=== PATIENT | female | born 1970 | race American Indian/Alaskan Native ===

== ENCOUNTER 2016-11-22 07:55 | Emergency (ER) | payer MEDICARE ==
[2016-11-22] MEDS ORDERED: DUONEB 0.5 MG-3 MG/3 ML SOLN IH ONE ×2 (08:32→08:38)
[2016-11-22 09:03] LABS: Basophils % (Auto) 0.5 % (0.0-1.8); Eosinophils % (Auto) 2.5 % (0.0-4.3); Mean Corpuscular HGB Conc 30 % (30-34); Mean Corpuscular Volume 73 fl (79-97); Platelet Count 269 K/mm3 (140-440); Red Blood Count 4.31 M/mm3 (3.65-5.03); Red Cell Distribution Width 18.2 % (13.2-15.2)
[2016-11-22 09:10] LABS: Hematocrit 31.4 % (30.3-42.9); Hemoglobin 9.4 gm/dl (10.1-14.3); Mean Corpuscular Hemoglobin 22 pg (28-32)
[2016-11-22 09:14] LABS: Anion Gap 13 mmol/L; BUN/Creatinine Ratio 11.66; Blood Urea Nitrogen 14 mg/dL (7-17); Carbon Dioxide 31 mmol/L (22-30); Chloride 103.2 mmol/L (98-107); Glucose 121 mg/dL (65-100); Potassium 3.6 mmol/L (3.6-5.0); Sodium 144 mmol/L (137-145)
[2016-11-22] MEDS ORDERED: LASIX IV ONE (09:29)
[2016-11-22] MEDS ORDERED: XOPENEX IH ONE (09:29)
[2016-11-22] MEDS ORDERED: CATAPRES PO ONE (09:29)
[2016-11-22] MEDS ORDERED: MAGNESIUM SULFATE 2GM/50ML 2 GM/50 ML BAG IV ONE (09:29)
[2016-11-22] MEDS ORDERED: ATROVENT IH ONE (09:29)
[2016-11-22] MEDS ORDERED: TESSALON PERLES PO ONE (09:29)
--- NOTE | 2016-11-22 09:33 | XRay Report ---
AP CHEST: HISTORY: Shortness of breath Mild cardiomegaly, mild pulmonary venous congestion and small left pleural effusion are identified. These findings are new since 03/16/16. No consolidation or pneumothorax. Single lead pacemaker device terminates in the right ventricle. IMPRESSION: Mild CHF.
--- NOTE | 2016-11-22 12:08 | Emergency Department Report ---
ED Shortness of Breath HPI - General Chief Complaint: Dyspnea/Respdistress Stated Complaint: ASTHMA ATTACK Time Seen by Provider: 11/22/16 09:20 Source: patient Mode of arrival: Ambulatory Limitations: No Limitations - History of Present Illness Initial Comments: 46-year-old female with a past medical history of CHF, asthma, hypertension, and internal defibrillator placement presents to Hospital complaints of shortness of breath since last night. Patient states she was wheezing and coughing up yellow sputum. Patient did not have an albuterol at home to use for this asthma attack. No pain reported. Patient states she is otherwise compliant with her medication including her blood pressure medication however, has not had her a.m. dose of meds. Patient also complains of worsening lower extremity swelling 1 week. No previous reports of intubations. - Related Data Home Medications Medication Instructions Recorded Confirmed Last Taken Carvedilol [Coreg] 25 mg PO BID 03/16/16 03/16/16 Unknown Losartan [Cozaar] 100 mg PO QDAY 03/16/16 03/16/16 Unknown Previous Rx's Medication Instructions Recorded Last Taken Type ALBUTEROL Inhaler [ProAir HFA 2 puff IH QID PRN #1 inhalation 03/16/16 Unknown Rx Inhaler] Azithromycin [Zithromax TAB] 500 mg PO QDAY #3 tablet 03/16/16 Unknown Rx Furosemide [Lasix TAB] 40 mg PO QDAY #30 tablet 03/16/16 Unknown Rx HYDROcodone/APAP 5-325 [[place] 1 each PO Q6HR PRN #10 tablet 03/16/16 Unknown Rx 5/325] amLODIPine [Norvasc] 10 mg PO DAILY #30 tablet 03/16/16 Unknown Rx Cyclobenzaprine HCl [Flexeril 5 MG 5 mg PO Q8HR PRN #10 tab 04/28/16 Unknown Rx TAB] ALBUTEROL Inhaler [ProAir HFA 2 puff IH QID PRN #1 inhalation 11/22/16 Unknown Rx Inhaler] Prednisone [predniSONE 10 mg 10 mg PO .TAPER #1 tab.ds.pk 11/22/16 Unknown Rx (6-Day Pack, 21 Tabs)] Allergies Allergy/AdvReac Type Severity Reaction Status Date / Time No Known Allergies Allergy Unverified 05/11/15 16:15 ED Review of Systems ROS: Stated complaint: ASTHMA ATTACK Other details as noted in HPI Comment: All other systems reviewed and negative Other: Constitutional: No fevers chills Eyes: No eye pain visual changes ENT: No ear pain or throat pain Neck: Denies pain Respiratory: As per HPI Cardiovascular: Denies chest pain, palpitations, syncope GI: Denies abdominal pain, nausea, vomiting, diarrhea : Denies dysuria, urinary frequency, or urgency Musculoskeletal: Denies back pain Skin: Denies rash, lesions, erythema Neurologic: Denies headache, numbness, weakness Psychiatric: Denies suicidal ideation, hallucinations ED Past Medical Hx - Past Medical History Previous Medical History?: Yes Hx Hypertension: Yes Hx Congestive Heart Failure: Yes Hx Asthma: Yes - Surgical History Hx Internal Defibrillator: Yes - Social History Smoking Status: Never Smoker Substance Use Type: None - Medications Home Medications: Home Medications Medication Instructions Recorded Confirmed Last Taken Type ALBUTEROL Inhaler [ProAir HFA 2 puff IH QID PRN #1 inhalation 03/16/16 Unknown Rx Inhaler] Azithromycin [Zithromax TAB] 500 mg PO QDAY #3 tablet 03/16/16 Unknown Rx Carvedilol [Coreg] 25 mg PO BID 03/16/16 03/16/16 Unknown History Furosemide [Lasix TAB] 40 mg PO QDAY #30 tablet 03/16/16 Unknown Rx HYDROcodone/APAP 5-325 [[place] 1 each PO Q6HR PRN #10 tablet 03/16/16 Unknown Rx 5/325] Losartan [Cozaar] 100 mg PO QDAY 03/16/16 03/16/16 Unknown History amLODIPine [Norvasc] 10 mg PO DAILY #30 tablet 03/16/16 Unknown Rx Cyclobenzaprine HCl [Flexeril 5 MG 5 mg PO Q8HR PRN #10 tab 04/28/16 Unknown Rx TAB] ALBUTEROL Inhaler [ProAir HFA 2 puff IH QID PRN #1 inhalation 11/22/16 Unknown Rx Inhaler] Prednisone [predniSONE 10 mg 10 mg PO .TAPER #1 tab.ds.pk 11/22/16 Unknown Rx (6-Day Pack, 21 Tabs)] ED Physical Exam - General Limitations: No Limitations - Other Other exam information: General: No limitations Head exam: Atraumatic, normocephalic Eyes exam: Normal appearance ENT: Moist mucous membrane, normal oropharynx Neck exam: Normal inspection, full range of motion Respiratory exam: Mild expiratory wheezing (patient received 1 Duo neb prior to my evaluation), mild tachypnea Cardiovascular: Normal rate and rhythm, normal heart sounds Abdomen: Soft, nondistended, and nontender, with normal bowel sounds, no rebound, or guarding Extremity: Full range of motion normal inspection no deformity, nonpitting lower extremity edema Back: Normal Inspection, full range of motion, no tenderness Neurologic: Alert, oriented x3, cranial nerves intact, no motor or sensory deficit Psychiatric: normal affect, normal mood Skin: Warm, dry, intact ED Course Vital Signs 11/22/16 11/22/16 11/22/16 08:13 08:24 08:25 Temperature 98.5 F Pulse Rate 113 H Pulse Rate [ Anterior Bilateral Throughout] Respiratory 24 Rate Respiratory Rate [Anterior Bilateral Throughout] Blood Pressure 164/125 191/141 Blood Pressure [Left] O2 Sat by Pulse 96 92 91 Oximetry 11/22/16 11/22/16 11/22/16 08:26 08:43 08:53 Temperature Pulse Rate Pulse Rate [ 108 H 110 H Anterior Bilateral Throughout] Respiratory Rate Respiratory 18 18 Rate [Anterior Bilateral Throughout] Blood Pressure 191/141 Blood Pressure [Left] O2 Sat by Pulse 93 Oximetry 11/22/16 11/22/16 11/22/16 09:55 10:01 12:02 Temperature Pulse Rate 105 H Pulse Rate [ 102 H Anterior Bilateral Throughout] Respiratory 22 Rate Respiratory 18 Rate [Anterior Bilateral Throughout] Blood Pressure 191/141 Blood Pressure 173/107 [Left] O2 Sat by Pulse 97 Oximetry 11/22/16 11/22/16 12:03 12:12 Temperature Pulse Rate 100 H Pulse Rate [ Anterior Bilateral Throughout] Respiratory 22 Rate Respiratory Rate [Anterior Bilateral Throughout] Blood Pressure Blood Pressure 168/110 [Left] O2 Sat by Pulse 97 Oximetry - Reevaluation(s) Reevaluation #1: 11/22/16 12:17 Patient treated with clonidine, Tessalon Perles, additional neb last she was, Solu-Medrol, magnesium, and Lasix 80 mg IV for both asthma and CHF. Patient went to the bathroom multiple times without difficulty and expresses improvement in respiratory symptoms. Blood pressure is also trending downward after medication. Patient is still scheduled to take her prescribed blood pressure doses today and will be encouraged to do so. Patient is adamant about being discharged to stay she was ready to go. ED Medical Decision Making - Lab Data Result diagrams: 11/22/16 08:38 11/22/16 08:38 Lab Results 11/22/16 11/22/16 11/22/16 Range/Units 08:38 08:38 09:07 WBC 7.0 (4.5-11.0) K/mm3 RBC 4.31 (3.65-5.03) M/mm3 Hgb 9.4 L (10.1-14.3) gm/dl Hct 31.4 (30.3-42.9) % MCV 73 L (79-97) fl MCH 22 L (28-32) pg MCHC 30 (30-34) % RDW 18.2 H (13.2-15.2) % Plt Count 269 (140-440) K/mm3 Lymph % (Auto) 13.5 (13.4-35.0) % [place] % (Auto) 10.3 H (0.0-7.3) % Eos % (Auto) 2.5 (0.0-4.3) % Baso % (Auto) 0.5 (0.0-1.8) % Lymph # 1.0 L (1.2-5.4) K/mm3 [place] # 0.7 (0.0-0.8) K/mm3 Eos # 0.2 (0.0-0.4) K/mm3 Baso # 0.0 (0.0-0.1) K/mm3 Seg Neutrophils % 73.2 H (40.0-70.0) % Seg Neutrophils # 5.2 (1.8-7.7) K/mm3 Sodium 144 (137-145) mmol/L Potassium 3.6 (3.6-5.0) mmol/L Chloride 103.2 (98-107) mmol/L Carbon Dioxide 31 H (22-30) mmol/L Anion Gap 13 mmol/L BUN 14 (7-17) mg/dL Creatinine 1.2 (0.7-1.2) mg/dL Estimated GFR 59 ml/min BUN/Creatinine Ratio 11.66 % Glucose 121 H (65-100) mg/dL Calcium 8.0 L (8.4-10.2) mg/dL Troponin T < 0.010 (0.00-0.029) ng/mL NT-Pro-B Natriuret Pep 2450 H (0-450) pg/mL - EKG Data -: EKG Interpreted by Me (nsr [id number], LAE) - EKG Data When compared to previous EKG there are: no significant change - Radiology Data Radiology results: report reviewed (chest x-ray: Mild CHF) - Medical Decision Making Patient is feeling much better. Blood pressures trending downward. She will discharged on medications for asthma and to continue current outpatient regimen. Vital signs reported to me prior to discharge include a blood pressure of 171/101. Contrary to last documented respiratory rate patient is not tachypnea and does not have any shortness of breath prior to discharge. - Differential Diagnosis CHF, bronchitis, asthma, pneumonia Critical Care Time: No Critical care attestation.: If time is entered above; I have spent that time in minutes in the direct care of this critically ill patient, excluding procedure time. ED Disposition Clinical Impression: Asthma exacerbation, CHF (congestive heart failure) Disposition: DISCHARGED TO HOME OR SELFCARE Is pt being admited?: No Does the pt Need Aspirin: No Condition: Stable Instructions: Asthma (ED), Heart Failure (ED) Additional Instructions: Continue your medications as prescribed and return if symptoms worsen. You may continue with your current blood pressure medication however, did not take your Lasix today since you received Lasix in the ER. Prescriptions: ALBUTEROL Inhaler [ProAir HFA Inhaler] 2 puff IH QID PRN #1 inhalation PRN Reason: Shortness Of Breath Prednisone [predniSONE 10 mg (6-Day Pack, 21 Tabs)] 10 mg PO .TAPER #1 tab.ds.pk Referrals: PRIMARY CARE, [Primary Care Provider] - 3-5 Days Time of Disposition: 12:25
[2016-11-22 12:23] VITALS: BP 172/101
== END 2016-11-22 12:30 | disposition home or self-care (01) ==
LOC: ED 07:55
DX: J45.901 Unspecified asthma with (acute) exacerbation (principal); I50.9 Heart failure, unspecified; I10 Essential (primary) hypertension; J45.909 Unspecified asthma, uncomplicated
CPT/HCPCS: 36415; 71010; 80048; 83880; 84484; 85025; 93005; 93010; 94640; 96365; 96375; 99284; J1940; J2930; J3475

== ENCOUNTER 2016-11-24 13:54 | Inpatient (IN) | payer MEDICARE, OTHER ==
[2016-11-24] MEDS ORDERED: PROVENTIL IH ONE ×2 (15:05→17:59)
[2016-11-24] MEDS ORDERED: ATROVENT IH ONE (15:05)
[2016-11-24] MEDS ORDERED: MAGNESIUM SULFATE 2GM/50ML 2 GM/50 ML BAG IV ONE (16:00)
[2016-11-24] MEDS ORDERED: APRESOLINE IV ONE (16:01)
--- NOTE | 2016-11-24 16:03 | Emergency Department Report ---
HPI - General Chief Complaint: Adult Asthma Time Seen by Provider: 11/24/16 16:00 - HPI HPI: This is a 46-year-old Afro[place] female presents to the emergency department , dropped off by her mother, with complaint of a 24 hour history of shortness of breath, wheezing, dry cough that she believes this to be an asthma exacerbation. The patient was recently here at [facility] for the symptoms of symptoms and was discharged home with an inhaler and a steroid- dependent. The patient says that she is disabled secondary to CHF and does not have the money and therefore filled the inhaler but did not take any of the steroids. She denies any fever, nausea, vomiting, back pain. She has some chest tightness due to the wheezing and bronchospasm but denies any pain. She has a past medical history of asthma, hypertension and CHF. She denies tobacco abuse. She has not had a primary care doctor. No recent travel or sick contacts at home. ED Past Medical Hx - Past Medical History Previous Medical History?: Yes Hx Hypertension: Yes Hx Congestive Heart Failure: Yes Hx Asthma: Yes - Surgical History Past Surgical History?: Yes Hx Internal Defibrillator: Yes - Social History Smoking Status: Never Smoker Substance Use Type: Alcohol, Prescribed - Medications Home Medications: Home Medications Medication Instructions Recorded Confirmed Last Taken Type ALBUTEROL Inhaler [ProAir HFA 2 puff IH QID PRN #1 inhalation 03/16/16 Unknown Rx Inhaler] Azithromycin [Zithromax TAB] 500 mg PO QDAY #3 tablet 03/16/16 Unknown Rx Carvedilol [Coreg] 25 mg PO BID 03/16/16 03/16/16 Unknown History Furosemide [Lasix TAB] 40 mg PO QDAY #30 tablet 03/16/16 Unknown Rx HYDROcodone/APAP 5-325 [[place] 1 each PO Q6HR PRN #10 tablet 03/16/16 Unknown Rx 5/325] Losartan [Cozaar] 100 mg PO QDAY 03/16/16 03/16/16 Unknown History amLODIPine [Norvasc] 10 mg PO DAILY #30 tablet 03/16/16 Unknown Rx Cyclobenzaprine HCl [Flexeril 5 MG 5 mg PO Q8HR PRN #10 tab 04/28/16 Unknown Rx TAB] ALBUTEROL Inhaler [ProAir HFA 2 puff IH QID PRN #1 inhalation 11/22/16 Unknown Rx Inhaler] Prednisone [predniSONE 10 mg 10 mg PO .TAPER #1 tab.ds.pk 11/22/16 Unknown Rx (6-Day Pack, 21 Tabs)] ED Review of Systems ROS: Stated complaint: ASTHMA Other details as noted in HPI Comment: All other systems reviewed and negative Constitutional: denies: chills, fever Eyes: denies: eye pain, eye discharge, vision change ENT: denies: ear pain, throat pain Respiratory: cough, shortness of breath, wheezing Cardiovascular: denies: palpitations, syncope Gastrointestinal: denies: abdominal pain, nausea, diarrhea Genitourinary: denies: urgency, dysuria, discharge Musculoskeletal: denies: back pain, joint swelling, arthralgia Skin: denies: rash, lesions Neurological: denies: headache, weakness, paresthesias Physical Exam - Physical Exam Vital Signs: Vital Signs 11/24/16 11/24/16 11/24/16 14:53 15:13 15:28 Temperature 98.1 F Pulse Rate 116 H Pulse Rate [ 115 H 120 H Bilateral Upper Lobe] Respiratory 22 Rate Respiratory 20 20 Rate [Bilateral Upper Lobe] Blood Pressure 180/119 Blood Pressure [Right] O2 Sat by Pulse 98 Oximetry 11/24/16 11/24/16 15:40 15:41 Temperature 98.3 F Pulse Rate 116 H Pulse Rate [ Bilateral Upper Lobe] Respiratory 24 Rate Respiratory Rate [Bilateral Upper Lobe] Blood Pressure Blood Pressure 162/108 [Right] O2 Sat by Pulse 98 98 Oximetry Physical Exam: GENERAL: The patient is well-developed well-nourished. HEENT: Normocephalic. Atraumatic. Extraocular motions are intact. Patient has moist mucous membranes. Pupils equal reactive to light bilaterally. NECK: Supple. Trachea is mid line. CHEST/LUNGS: There is moderate wheezing throughout the chest. Coarse breath sounds heard. There is tachypnea but no accessory muscle use. There is no respiratory distress noted. HEART/CARDIOVASCULAR: Regular. There is no tachycardia. There is no gallop rub or murmur. ABDOMEN: Abdomen is soft, nontender. Patient has normal bowel sounds. There is no abdominal distention. SKIN: Skin is warm and dry. Nonpitting swelling to the bilateral lower extremity. NEURO: The patient is awake, alert, and oriented. The patient is cooperative. The patient has no focal neurologic deficits. The patient has normal speech. MUSCULOSKELETAL: There is no tenderness or deformity. There is no limitation range of motion. There is no evidence of acute injury. ED Course Vital Signs 11/24/16 11/24/16 11/24/16 14:53 15:13 15:28 Temperature 98.1 F Pulse Rate 116 H Pulse Rate [ 115 H 120 H Bilateral Upper Lobe] Respiratory 22 Rate Respiratory 20 20 Rate [Bilateral Upper Lobe] Blood Pressure 180/119 Blood Pressure [Right] O2 Sat by Pulse 98 Oximetry 11/24/16 11/24/16 15:40 15:41 Temperature 98.3 F Pulse Rate 116 H Pulse Rate [ Bilateral Upper Lobe] Respiratory 24 Rate Respiratory Rate [Bilateral Upper Lobe] Blood Pressure Blood Pressure 162/108 [Right] O2 Sat by Pulse 98 98 Oximetry ED Medical Decision Making - Lab Data Result diagrams: 11/24/16 18:21 11/24/16 18:21 - EKG Data -: EKG Interpreted by Me EKG shows normal: sinus rhythm, axis, intervals (prolonged QTC), QRS complexes, ST-T waves (nonspecific T-wave) Rate: normal - EKG Data When compared to previous EKG there are: no significant change (other than prolonged QTC) Interpretation: other (sinus rhythm, rate of 99 bpm, normal axis, prolonged QTC , nonspecific T-wave) - Radiology Data Radiology results: image reviewed interpreted by me: Chest x-ray shows moderate cardiomegaly and some pulmonary vascular congestion concerning for CHF. - Medical Decision Making 46-year-old female presents with 24-hour history of shortness of breath that is a exacerbation or return of her previous symptoms. Patient's labs are mostly unremarkable other than the BNP level of 3200. Chest x-ray shows some cardiomegaly and pulmonary vessel congestion. Patient has coarse breath sounds and wheezing on examination. She was given multiple breathing treatments, steroids and magnesium and did not get much relief. Patient was given some Lasix. Patient started off with some hypertensive urgency but it is coming down to much more reasonable level with a dose of blood pressure medication. However with the patient continuing to have some shortness of breath, she will be admitted to hospital for further evaluation and treatment and has been accepted for admission by the hospitalist, Dr. Cruz. - Differential Diagnosis CHF, asthma, COPD, pneumonia Critical Care Time: No Critical care attestation.: If time is entered above; I have spent that time in minutes in the direct care of this critically ill patient, excluding procedure time. ED Disposition Clinical Impression: Asthma exacerbation, Hypertensive urgency CHF (congestive heart failure) Qualifiers: Congestive heart failure type: unspecified congestive heart failure type Congestive heart failure chronicity: acute on chronic Qualified Code(s): I50.9 - Heart failure, unspecified Disposition: OP ADMITTED IP TO THIS HOSP Is pt being admited?: Yes Condition: Stable Referrals: PRIMARY CARE, [Primary Care Provider] - 3-5 Days Time of Disposition: 19:46
[2016-11-24] MEDS ORDERED: ROBITUSSIN AC PO ONE (17:30)
[2016-11-24] MEDS ORDERED: NORMODYNE IV ONE (17:59)
[2016-11-24 18:50] LABS: Basophils % (Auto) 0.3 % (0.0-1.8); Eosinophils % (Auto) 1.1 % (0.0-4.3); Hematocrit 31.9 % (30.3-42.9); Hemoglobin 9.7 gm/dl (10.1-14.3); Mean Corpuscular HGB Conc 30 % (30-34); Mean Corpuscular Hemoglobin 22 pg (28-32); Mean Corpuscular Volume 72 fl (79-97); Platelet Count 284 K/mm3 (140-440); Red Blood Count 4.43 M/mm3 (3.65-5.03); Red Cell Distribution Width 18.5 % (13.2-15.2); White Blood Count 10.7 K/mm3 (4.5-11.0)
[2016-11-24 18:55] LABS: Anion Gap 15 mmol/L; Blood Urea Nitrogen 13 mg/dL (7-17); Calcium 8.3 mg/dL (8.4-10.2); Carbon Dioxide 31 mmol/L (22-30); Chloride 100.1 mmol/L (98-107); Glucose 115 mg/dL (65-100); Potassium 3.5 mmol/L (3.6-5.0); Sodium 143 mmol/L (137-145)
[2016-11-24] MEDS ORDERED: LASIX IV ONE (19:01)
--- NOTE | 2016-11-24 19:24 | Admit Criteria Form ---
Admission Criteria Documentation: ASTHMA Clinical Indications for Admission to Inpatient Care (Place 'X' for any and all applicable criteria): Admission is indicated for ANY ONE of the following (1)(2)(3)(4)(5): [ ]I. Absent or markedly diminished breath sounds (silent chest) [ ]II. Oxygen saturation < 92% [ ]III. PaCO2 = / > 42 mm Hg (5.6 kPa) [ ]IV. Peak expiratory flow rate < 40% of predicted or personal best after treatment. [ ]V. Peak expiratory flow rate < 33% of predicted or personal before after treatment [ ]. Change in mental status [ ]VII. Ventilatory support required [ ]VIII. PaO2 < 60 mm Hg (8.0 kPa) [ ]IX. Cyanosis [ ]X. Cardiac dysrhythmia (e.g., bradycardia) [ ]XI. Hemodynamic instability [ ]XII. Radiographic evidence of complication requiring inpatient treatment (e.g., pneumonia, pneumothorax) [ X]XIII. Inpatient admission required rather than observation care (also use Asthma: Observation Care guideline as appropriate) because of ANY ONE of the following: [X ]a) Respiratory finding that is severe or persistent (eg, dyspnea, tachypnea, accessory muscle use) [ ]b) Airflow measurements less than 60% of predicted or personal best that persist (e.g., over 24 hours) or worsen despite treatments [ ]c) Supplemental oxygen or respiratory treatments for over 24 hours that are performable only in acute inpatient setting [ ]d) Other condition, treatment or monitoring requiring inpatient admission. Extended stay beyond goal length of stay may be needed for (26)(27)(28): [ ]a) Severe respiratory failure (23) (29) (30) [ ]b) Secondary causes and complications (25) [ ]c) Status asthmaticus [ ]d) Chronic obstructive asthma [ ]e) Older patients (29) [ ]f) Slow resolution [ ]g) Clinically significant exacerbation of comorbidities (eg, susanne. heart failure, atrial fibrillation) The original [employer] content created by [employer] has been revised. The portions of the content which have been revised are identified through the use of italic text or in bold, and [employer] has neither reviewed nor approved the modified material. All other unmodified content is copyright [employer] Please see references footnoted in the original [facility] edition 2016 Admission Criteria Met: Yes
[2016-11-24] MEDS ORDERED: TYLENOL PO PRN (20:13)
[2016-11-24] MEDS ORDERED: ZOFRAN IV PRN (20:13)
[2016-11-24] MEDS ORDERED: DUONEB 0.5 MG-3 MG/3 ML SOLN IH PRN (20:13)
[2016-11-24] MEDS ORDERED: FLEXERIL PO PRN (20:15)
[2016-11-24] MEDS: NORCO 5/325 PO PRN (22:55)
[2016-11-24] MEDS: COREG PO SCH (22:55)
[2016-11-24] MEDS: PROVENTIL IH PRN (23:07)
[2016-11-25] MEDS: PROVENTIL IH PRN ×2 (08:01→18:29)
--- NOTE | 2016-11-25 09:13 | History and Physical Report ---
History of Present Illness Date of admission: 11/24/16 20:13 Chief complaint: I cant breathe History of present illness: 46 YO female with CHF, HTN,Asthma, Noncompliance, Metabolic syndrome, HTN presents to ED for evaluation. Pt states that she has been experiencing shortness of breath for the past 3 days with worsening symptoms over the past 12 hours. Pt acknowledges orthopnea, PND, dietary and medication noncompliance, lower extremity swelling. Pt denies any fever, chills, productive cough, NVD, Syncope,calf pain, prolonged travel/immobility, individual/family history of DVT /PE, hemoptysis, trauma, or recent ill contacts. Past History Past Medical History: heart failure, hypertension Past Surgical History: Other (ICD placement) Social history: single. denies: alcohol abuse, prescription drug abuse Family history: diabetes, hypertension Medications and Allergies Allergies Allergy/AdvReac Type Severity Reaction Status Date / Time No Known Allergies Allergy Unverified 05/11/15 16:15 Home Medications Medication Instructions Recorded Confirmed Last Taken Type ALBUTEROL Inhaler [ProAir HFA 2 puff IH QID PRN #1 inhalation 03/16/16 11/24/16 1 Day Ago Rx Inhaler] Carvedilol [Coreg] 25 mg PO BID 03/16/16 11/24/16 1 Day Ago History Furosemide [Lasix TAB] 40 mg PO QDAY #30 tablet 03/16/16 11/24/16 1 Day Ago Rx Losartan [Cozaar] 100 mg PO QDAY 03/16/16 11/24/16 1 Day Ago History amLODIPine [Norvasc] 10 mg PO DAILY #30 tablet 03/16/16 11/24/16 1 Day Ago Rx Cyclobenzaprine HCl [Flexeril 5 MG 5 mg PO Q8HR PRN #10 tab 04/28/16 11/24/16 1 Day Ago Rx TAB] ALBUTEROL Inhaler [ProAir HFA 2 puff IH QID PRN #1 inhalation 11/22/16 11/24/16 1 Day Ago Rx Inhaler] Active Meds: Active Medications Acetaminophen (Tylenol) 650 mg PO Q4H PRN PRN Reason: Pain MILD(1-3)/Fever >100.5/ANDRES Acetaminophen/Hydrocodone Bitart ([place] 5/325) 1 each PO Q6HR PRN PRN Reason: Pain Last Admin: 11/24/16 22:55 Dose: 1 each Albuterol (Proventil) 2.5 mg IH Q4HRT PRN PRN Reason: Shortness Of Breath Last Admin: 11/25/16 08:01 Dose: 2.5 mg Amlodipine Besylate (Norvasc) 10 mg PO DAILY [facility] Carvedilol (Coreg) 25 mg PO BID REINA Last Admin: 11/24/16 22:55 Dose: 25 mg Cyclobenzaprine HCl (Flexeril) 5 mg PO Q8H PRN PRN Reason: Pain Furosemide (Lasix) 40 mg IV QDAY REINA Losartan Potassium (Cozaar) 100 mg PO QDAY REINA Ondansetron HCl (Zofran) 4 mg IV Q8H PRN PRN Reason: N/V unrelieved by Reglan Pneumococcal Polyvalent Vaccine (Pneumovax 23) 0.5 ml IM .ONCE ONE Stop: 11/25/16 12:01 Review of Systems All systems: negative Cardiovascular: orthopnea, edema, shortness of breath, paroxysmal nocturnal dyspnea Exam - Constitutional Vitals: Temp Pulse Resp BP Pulse Ox 97.8 F 96 H 16 151/100 95 11/25/16 04:40 11/25/16 08:16 11/25/16 08:16 11/25/16 04:40 11/25/16 09:06 General appearance: Present: mild distress - EENT Eyes: Present: PERRL ENT: hearing intact, clear oral mucosa - Neck Neck: Present: supple, normal ROM - Respiratory Respiratory effort: normal Respiratory: bilateral: diminished - Cardiovascular Heart Sounds: Present: S1 & S2. Absent: rub, click - Extremities Extremities: pulses symmetrical, No edema Extremity abnormal: edema Peripheral Pulses: within normal limits - Abdominal General gastrointestinal: Present: soft, non-tender, non-distended, normal bowel sounds Female genitourinary: Present: normal - Integumentary Integumentary: Present: clear, warm, dry - Musculoskeletal Musculoskeletal: gait normal, strength equal bilaterally - Psychiatric Psychiatric: appropriate mood/affect, intact judgment & insight - Neurologic Neurologic: CNII-XII intact, moves all extremities Results - Labs CBC & Chem 7: 11/24/16 18:21 11/24/16 18:21 Assessment and Plan - Patient Problems (1) CHF (congestive heart failure) Current Visit: Yes Status: Acute Qualifiers: Congestive heart failure type: systolic Congestive heart failure chronicity : acute on chronic Qualified Code(s): I50.23 - Acute on chronic systolic ( congestive) heart failure Plan to address problem: CHF protocol: Telemetry monitoring, serial cardiac enzymes, fluid restriction, diuresis, afterload reduction, monitor uop q shift, resume home medication (2) HTN (hypertension) Current Visit: Yes Status: Acute Qualifiers: Hypertension type: H Plan to address problem: Accelerated HTN: monitor bp q shift, resume home medication (3) Metabolic syndrome Current Visit: Yes Status: Acute Plan to address problem: Pt counseled regarding low sodium/cardiac diet, increased physical activity (4) Noncompliance Current Visit: Yes Status: Acute Plan to address problem: Pt counseled (5) DVT prophylaxis Current Visit: Yes Status: Acute
[2016-11-25] MEDS: COZAAR PO SCH (09:16)
[2016-11-25] MEDS: COREG PO SCH ×2 (09:16→21:36)
[2016-11-25] MEDS: NORVASC PO SCH (09:16)
[2016-11-25] MEDS: LASIX IV SCH (09:17)
[2016-11-25] MEDS ORDERED: ZESTRIL PO SCH (10:00)
--- NOTE | 2016-11-25 11:02 | XRay Report ---
AP chest x-ray. History: Shortness of breath. Findings: Since the previous study on November 22, there has been no significant interval change in the mild CHF pattern. No new findings are seen.
[2016-11-25] MEDS ORDERED: PNEUMOVAX 23 IM ONE (12:00)
[2016-11-25] MEDS: MUCINEX ER PO SCH (21:35)
[2016-11-25] MEDS: NORCO 5/325 PO PRN (21:36)
[2016-11-25] MEDS: ROBITUSSIN AC PO PRN (21:37)
[2016-11-25 22:02] LABS: Bilirubin,Urine NEG (Negative); Blood,Urine NEG (Negative); Ketones,Urine NEG (Negative); Leukocyte Esterase,Urine NEG (Negative); Mucus,Urine FEW /HPF; Nitrite,Urine NEG (Negative); Urobilinogen,Urine < 2.0 mg/dL (<2.0)
[2016-11-25 22:03] LABS: Protein,Urine >500 mg/dL (Negative)
--- NOTE | 2016-11-25 23:49 | Progress Note ---
Assessment and Plan Assessment and plan: CHF COPD Obesity History Interval history: c/o chest discomfort and cough Hospitalist Physical - Constitutional Vitals: Temp Pulse Resp BP Pulse Ox 97.8 F 106 H 20 153/97 97 11/25/16 20:00 11/25/16 23:00 11/25/16 21:36 11/25/16 21:36 11/25/16 20:00 General appearance: Present: mild distress Results - Labs CBC & Chem 7: 11/24/16 18:21 11/24/16 18:21 Labs: Laboratory Last Values WBC 10.7 K/mm3 (4.5-11.0) 11/24/16 18:21 RBC 4.43 M/mm3 (3.65-5.03) 11/24/16 18:21 Hgb 9.7 gm/dl (10.1-14.3) L 11/24/16 18:21 Hct 31.9 % (30.3-42.9) 11/24/16 18:21 MCV 72 fl (79-97) L 11/24/16 18:21 MCH 22 pg (28-32) L 11/24/16 18:21 MCHC 30 % (30-34) 11/24/16 18:21 RDW 18.5 % (13.2-15.2) H 11/24/16 18:21 Plt Count 284 K/mm3 (140-440) 11/24/16 18:21 Lymph % (Auto) 9.1 % (13.4-35.0) L 11/24/16 18:21 [place] % (Auto) 6.5 % (0.0-7.3) 11/24/16 18:21 Eos % (Auto) 1.1 % (0.0-4.3) 11/24/16 18:21 Baso % (Auto) 0.3 % (0.0-1.8) 11/24/16 18:21 Lymph # 1.0 K/mm3 (1.2-5.4) L 11/24/16 18:21 [place] # 0.7 K/mm3 (0.0-0.8) 11/24/16 18:21 Eos # 0.1 K/mm3 (0.0-0.4) 11/24/16 18:21 Baso # 0.0 K/mm3 (0.0-0.1) 11/24/16 18:21 Seg Neutrophils % 83.0 % (40.0-70.0) H 11/24/16 18:21 Seg Neutrophils # 8.9 K/mm3 (1.8-7.7) H 11/24/16 18:21 Sodium 143 mmol/L (137-145) 11/24/16 18:21 Potassium 3.5 mmol/L (3.6-5.0) L 11/24/16 18:21 Chloride 100.1 mmol/L (98-107) 11/24/16 18:21 Carbon Dioxide 31 mmol/L (22-30) H 11/24/16 18:21 Anion Gap 15 mmol/L 11/24/16 18:21 BUN 13 mg/dL (7-17) 11/24/16 18:21 Creatinine 1.0 mg/dL (0.7-1.2) 11/24/16 18:21 Estimated GFR > 60 ml/min 11/24/16 18:21 BUN/Creatinine Ratio 13.00 % 11/24/16 18:21 Glucose 115 mg/dL (65-100) H 11/24/16 18:21 Calcium 8.3 mg/dL (8.4-10.2) L 11/24/16 18:21 Troponin T < 0.010 ng/mL (0.00-0.029) 11/24/16 18:21 NT-Pro-B Natriuret Pep 3236 pg/mL (0-450) H 11/24/16 18:21 HCG, Qual Negative (Negative) 11/24/16 18:21 Urine Color Yellow (Yellow) 11/25/16 21:30 Urine Turbidity Clear (Clear) 11/25/16 21:30 Urine pH 5.0 (5.0-7.0) 11/25/16 21:30 Ur Specific [place] 1.020 (1.003-1.030) 11/25/16 21:30 Urine Protein >500 mg/dL (Negative) 11/25/16 21:30 Urine Glucose (UA) Neg mg/dL (Negative) 11/25/16 21:30 Urine Ketones Neg mg/dL (Negative) 11/25/16 21:30 Urine Blood Neg (Negative) 11/25/16 21:30 Urine Nitrite Neg (Negative) 11/25/16 21:30 Urine Bilirubin Neg (Negative) 11/25/16 21:30 Urine Urobilinogen < 2.0 mg/dL (<2.0) 11/25/16 21:30 Ur Leukocyte Esterase Neg (Negative) 11/25/16 21:30 Urine WBC (Auto) 3.0 /HPF (0.0-6.0) 11/25/16 21:30 Urine RBC (Auto) 2.0 /HPF (0.0-6.0) 11/25/16 21:30 U Epithel Cells (Auto) 9.0 /HPF (0-13.0) 11/25/16 21:30 Urine Mucus Few /HPF 11/25/16 21:30
[2016-11-26] MEDS: DUONEB 0.5 MG-3 MG/3 ML SOLN IH SCH ×2 (00:41→07:46)
[2016-11-26] MEDS: NORCO 5/325 PO PRN (04:20)
[2016-11-26] MEDS: ROBITUSSIN AC PO PRN (04:20)
[2016-11-26 06:59] LABS: Anion Gap 16 mmol/L; BUN/Creatinine Ratio 17.27; Blood Urea Nitrogen 19 mg/dL (7-17); Calcium 8.4 mg/dL (8.4-10.2); Carbon Dioxide 31 mmol/L (22-30); Chloride 99.5 mmol/L (98-107); Glucose 102 mg/dL (65-100); Potassium 4.2 mmol/L (3.6-5.0); Sodium 142 mmol/L (137-145)
[2016-11-26 08:43] VITALS: BP 171/74
[2016-11-26] MEDS: LASIX IV SCH (09:12)
[2016-11-26] MEDS: COREG PO SCH (09:46)
[2016-11-26] MEDS: COZAAR PO SCH (09:46)
[2016-11-26] MEDS: NORVASC PO SCH (09:46)
[2016-11-26] MEDS: MUCINEX ER PO SCH (09:46)
--- NOTE | 2016-11-26 10:29 | Discharge Summary ---
Providers - Providers Date of Admission: 11/24/16 20:13 Date of discharge: 11/26/16 Attending physician: MONE YOO Primary care physician: SAND TEMPERER Hospitalization Condition: Stable Disposition: DISCHARGED TO HOME OR SELFCARE Time spent for discharge: 35 min Exam - Constitutional Vitals: Temp Pulse Resp BP Pulse Ox 98.4 F 104 H 18 171/74 97 11/26/16 08:10 11/26/16 08:59 11/26/16 08:10 11/26/16 08:10 11/26/16 08:10 Plan Activity: advance as tolerated Diet: low cholesterol, low salt Follow up with: PRIMARY MD KUNAL [Primary Care Provider] - 3-5 Days JASMINE SAUCEDO MD [Staff Physician] - 7 Days KIARA SEBASTIAN MD [Staff Physician] - 7 Days [facility] [Outside] - 7 Days Prescriptions: amLODIPine [Norvasc] 10 mg PO DAILY #30 tablet Carvedilol [Coreg] 25 mg PO BID #60 tablet Cyclobenzaprine HCl [Flexeril 5 MG TAB] 5 mg PO Q8HR PRN #10 tab PRN Reason: Pain Furosemide [Lasix TAB] 40 mg PO QDAY #30 tablet guaiFENesin/CODEINE [Robitussin AC] 5 ml PO Q4H PRN #20 oral.liqd PRN Reason: Cough Losartan [Cozaar] 100 mg PO QDAY #30 tablet
== END 2016-11-26 11:00 | disposition home or self-care (01) | DRG 292 ==
LOC: ED 13:54 → 4A 20:13
PROVIDERS: ADMIT Internal Medicine; ATTEND Internal Medicine
DX: I11.0 Hypertensive heart disease with heart failure (principal); Z68.41 Body mass index [BMI] 40.0-44.9, adult; I50.23 Acute on chronic systolic (congestive) heart failure; I16.0 Hypertensive urgency; J44.9 Chronic obstructive pulmonary disease, unspecified; E66.9 Obesity, unspecified; E88.81 Metabolic syndrome and other insulin resistance; Z83.3 Family history of diabetes mellitus; Z82.49 Family history of ischemic heart disease and other diseases of the circulatory system; Z91.19 Patient's noncompliance with other medical treatment and regimen
CPT/HCPCS: 36415; 71010; 80048; 81001; 83880; 84484; 84703; 85025; 90732; 93005; 93010; 93306; 94640; 96374; 96375; 99406; J0360; J1940; J2930; J3475

== ENCOUNTER 2019-09-25 16:34 | Inpatient (IN) | payer MEDICARE ==
[2019-09-25] MEDS ORDERED: ALBUTEROL 2.5 MG/3 ML NEBU IH ONE ×3 (17:33→20:25)
[2019-09-25] MEDS ORDERED: methylPREDNISolone Sod Succinate 125 MG/2 ML INJ IV ONE (17:33)
[2019-09-25] MEDS ORDERED: MORPHINE 4 MG/1 ML INJ IV ONE (17:33)
[2019-09-25] MEDS ORDERED: IPRATROPIUM 0.02% NEBU 2.5 ML IH ONE (17:33)
[2019-09-25 18:47] LABS: Hematocrit 34.5 % (30.3-42.9); Hemoglobin 11.2 gm/dl (10.1-14.3); Mean Corpuscular HGB Conc 33 % (30-34); Mean Corpuscular Volume 80 fl (79-97); Platelet Count 247 K/mm3 (140-440); Red Blood Count 4.33 M/mm3 (3.65-5.03); Red Cell Distribution Width 17.6 % (13.2-15.2)
--- NOTE | 2019-09-25 18:57 | XRay Report ---
CHEST 1 VIEW INDICATION: dyspnea. COMPARISON: 11/24/2016 FINDINGS: Support devices: ICD in satisfactory position. Heart: Within normal limits. Lungs/Pleura: No acute air space or interstitial disease. Additional findings: None. IMPRESSION: No acute abnormality. Signer Name: Ruben Luna MD Signed: 09/25/2019 6:52 PM Workstation Name: [id number]
[2019-09-25 18:58] LABS: INR 0.88 (0.87-1.13)
[2019-09-25 18:59] LABS: Partial Thromboplastin Time 29.8 Sec. (24.2-36.6)
[2019-09-25 19:09] LABS: Calcium 9.7 mg/dL (8.4-10.2)
--- NOTE | 2019-09-25 19:19 | History and Physical Report ---
History of Present Illness Chief complaint: I cannot breathe, and I feel weak History of present illness: 49 YO Female with Systolic CHF S/P ICD Placement, HTN, Asthma, Noncompliance, Metabolic syndrome, HTN presents to ED for evaluation. Patient states that she has experienced shortness of breath over the past 3 days with worsening symptoms over the past 12 hours. Pt acknowledges nasal congestion, productive cough with brown mucus, malaise, body aches, and subjective fever. EMS notified and upon arrival the patient was found to be in distress and subsequently transported to [facility] for further care and evaluation. Patient seen and evaluated in the emergency department. Lab and imaging studies reviewed. Patient found to be in respiratory distress with acute hypoxemic respiratory failure with pulse oximetry of 86 with concomitant asthma exacerbation. Patient treated with nebulizer therapy with mild improvement of symptoms. At time of my exam the patient is leaning forward in bed using accessory muscles to breathe, in tripod position, is unable to speak in complete sentences due to shortness of breath. Patient admitted to medical floor for medical stabilization due to increased risk of cardiorespiratory decompensation. Cardiology consulted in ED. Patient denies chills, chest pain, palpitations, orthopnea, PND, dietary and medication noncompliance, lower extremity swelling, NVD, Syncope,calf pain, prolonged travel/immobility, individual/family history of DVT/PE, hemoptysis, trauma, or recent ill contacts. Prior admission on 11/24/2016 reviewed. All medication listed at time of admission has been reconciled. Past History Past Medical History: heart failure Past Surgical History: Other (ICD placement) Social history: single. denies: smoking, alcohol abuse, prescription drug abuse Family history: CAD, hypertension Medications and Allergies Allergies Allergy/AdvReac Type Severity Reaction Status Date / Time No Known Allergies Allergy Unverified 05/11/15 16:15 Home Medications Medication Instructions Recorded Confirmed Last Taken Type Albuterol INH(or & Nicu Only) 2 puff IH QID PRN #1 inhalation 03/16/16 11/24/16 1 Day Ago Rx [ProAir HFA Inhaler] ~11/23/16 Albuterol INH(or & Nicu Only) 2 puff IH QID PRN #1 inhalation 11/22/16 11/24/16 1 Day Ago Rx [ProAir HFA Inhaler] ~11/23/16 Cyclobenzaprine HCl [Flexeril 5 MG 5 mg PO Q8HR PRN #10 tab 11/26/16 Unknown Rx TAB] Furosemide [Lasix TAB] 40 mg PO QDAY #30 tablet 11/26/16 Unknown Rx Losartan [Cozaar] 100 mg PO QDAY #30 tablet 11/26/16 Unknown Rx amLODIPine 10 mg PO DAILY #30 tablet 11/26/16 Unknown Rx carvediloL [Coreg] 25 mg PO BID #60 tablet 11/26/16 Unknown Rx guaiFENesin/CODEINE [Robitussin AC] 5 ml PO Q4H PRN #20 oral.liqd 11/26/16 Unknown Rx Review of Systems Constitutional: fever, weakness, malaise, no weight loss, no weight gain, no chills, no sweats Ears, nose, mouth and throat: no ear pain, no ear discharge, no decreased hearing, no nose pain, no nasal discharge Cardiovascular: shortness of breath, no chest pain, no orthopnea, no palpitations Respiratory: cough, cough with sputum, shortness of breath Gastrointestinal: no abdominal pain, no nausea, no vomiting, no diarrhea Genitourinary Female: no pelvic pain, no flank pain, no menorrhagia, no dysuria, no urinary frequency, no urgency Rectal: no pain, no incontinence, no bleeding Musculoskeletal: no neck stiffness, no neck pain, no shooting arm pain Integumentary: no rash, no pruritis, no redness, no sores, no wounds Neurological: no transient paralysis, no paralysis, no weakness, no parathesias, no numbness, no tingling Psychiatric: no anxiety, no memory loss, no insomnia, no hypersomnia, no change in libido, no disorientation Endocrine: no cold intolerance, no heat intolerance, no excessive thirst, no polydipsia, no polyuria, no nocturia Hematologic/Lymphatic: no easy bruising, no easy bleeding, no lymphadenopathy Allergic/Immunologic: no urticaria, no allergic rhinitis Exam - Constitutional Vitals: Temp Pulse Resp BP Pulse Ox 98.3 F 85 15 155/97 94 09/25/19 17:10 09/25/19 18:46 09/25/19 18:30 09/25/19 18:46 09/25/19 18:46 General appearance: Present: mild distress - EENT Eyes: Present: PERRL ENT: hearing intact, clear oral mucosa - Neck Neck: Present: supple, normal ROM - Respiratory Respiratory effort: normal Respiratory: bilateral: CTA - Cardiovascular Heart Sounds: Present: S1 & S2. Absent: rub, click - Extremities Extremities: pulses symmetrical, No edema Peripheral Pulses: within normal limits - Abdominal General gastrointestinal: Present: soft, non-tender, non-distended, normal bowel sounds Female genitourinary: Present: normal - Integumentary Integumentary: Present: clear, warm, dry - Musculoskeletal Musculoskeletal: gait normal, strength equal bilaterally - Psychiatric Psychiatric: appropriate mood/affect, intact judgment & insight - Neurologic Neurologic: CNII-XII intact, moves all extremities Results - Labs CBC & Chem 7: 09/25/19 18:31 09/25/19 18:31 Labs: Abnormal lab results 09/25/19 09/25/19 09/25/19 Range/Units 18:31 18:31 18:31 MCH 26 L (28-32) pg RDW 17.6 H (13.2-15.2) % PT 12.0 L (12.2-14.9) Sec. BUN 22 H (7-17) mg/dL Creatinine 1.3 H (0.7-1.2) mg/dL Assessment and Plan - Patient Problems (1) Respiratory failure Current Visit: Yes Status: Acute Qualifiers: Chronicity: acute Respiratory failure complication: hypoxia Qualified Code(s): J96.01 - Acute respiratory failure with hypoxia Plan to address problem: Supplemental oxygen, nebulizer therapy, pulse oximetry, chest x-ray, ABG, noninvasive positive pressure ventilation as clinically indicated (2) CHF (congestive heart failure) Current Visit: Yes Status: Acute Qualifiers: Heart failure type: systolic Heart failure chronicity: chronic Qualified Code(s): I50.22 - Chronic systolic (congestive) heart failure Plan to address problem: Strict I's/O, daily weight, BNP, chest x-ray, pulse oximetry, cardiology consult placed in ED. (3) MARILYN (acute kidney injury) Current Visit: Yes Status: Acute Plan to address problem: IV fluid resuscitation therapy, monitor urine output every shift repeat BMP in a.m. to monitor serum creatinine. (4) Asthma exacerbation Current Visit: No Status: Acute Qualifiers: Asthma severity: moderate Plan to address problem: Supplemental oxygen, ABG, chest x-ray, IV steroid therapy, noninvasive positive pressure ventilation as clinically indicated, pulse oximetry. (5) DVT prophylaxis Current Visit: Yes Status: Acute Plan to address problem: SCD to bilateral lower extremities while in bed, patient is ambulatory.
[2019-09-25] MEDS ORDERED: ONDANSETRON 4 MG/2 ML INJ IV PRN (19:20)
[2019-09-25] MEDS ORDERED: ACETAMINOPHEN 325 MG TAB PO PRN (19:20)
--- NOTE | 2019-09-25 19:25 | Emergency Department Report ---
ED General Adult HPI - General Chief complaint: Dyspnea/Respdistress Stated complaint: CHEST PAIN/PRACHI Time Seen by Provider: 09/25/19 17:28 Source: patient, EMS Mode of arrival: Stretcher Limitations: No Limitations - History of Present Illness Initial comments: Patient is a 49-year-old F [place]an female with a past medical history of hypertension congestive heart failure and asthma who is presenting with 2 to 3 days of shortness of breath cough and congestion. Patient states that the cough is productive of brown mucus. She has had some increased shortness of breath as well as fevers. Patient has some associated body aches. Severity scale (0 -10): 8 Quality: aching Consistency: constant Improves with: none Worsens with: none Associated Symptoms: chest pain, cough, diaphoresis, fever/chills, shortness of breath. denies: nausea/vomiting, rash, seizure, syncope, weakness - Related Data Previous Rx's Medication Instructions Recorded Last Taken Type Albuterol INH(or & Nicu Only) 2 puff IH QID PRN #1 inhalation 03/16/16 1 Day Ago Rx [ProAir HFA Inhaler] ~11/23/16 Albuterol INH(or & Nicu Only) 2 puff IH QID PRN #1 inhalation 11/22/16 1 Day Ago Rx [ProAir HFA Inhaler] ~11/23/16 Cyclobenzaprine HCl [Flexeril 5 MG 5 mg PO Q8HR PRN #10 tab 11/26/16 Unknown Rx TAB] Furosemide [Lasix TAB] 40 mg PO QDAY #30 tablet 11/26/16 Unknown Rx Losartan [Cozaar] 100 mg PO QDAY #30 tablet 11/26/16 Unknown Rx amLODIPine 10 mg PO DAILY #30 tablet 11/26/16 Unknown Rx carvediloL [Coreg] 25 mg PO BID #60 tablet 11/26/16 Unknown Rx guaiFENesin/CODEINE [Robitussin AC] 5 ml PO Q4H PRN #20 oral.liqd 11/26/16 Unknown Rx Allergies Allergy/AdvReac Type Severity Reaction Status Date / Time No Known Allergies Allergy Unverified 05/11/15 16:15 ED Review of Systems ROS: Stated complaint: CHEST PAIN/PRACHI Other details as noted in HPI Comment: All other systems reviewed and negative ED Past Medical Hx - Past Medical History Previous Medical History?: Yes Hx Hypertension: Yes Hx Congestive Heart Failure: Yes Hx Diabetes: No Hx Asthma: Yes Hx COPD: No - Surgical History Past Surgical History?: Yes Hx Internal Defibrillator: Yes - Social History Smoking Status: Never Smoker Substance Use Type: None - Medications Home Medications: Home Medications Medication Instructions Recorded Confirmed Last Taken Type Albuterol INH(or & Nicu Only) 2 puff IH QID PRN #1 inhalation 03/16/16 11/24/16 1 Day Ago Rx [ProAir HFA Inhaler] ~11/23/16 Albuterol INH(or & Nicu Only) 2 puff IH QID PRN #1 inhalation 11/22/16 11/24/16 1 Day Ago Rx [ProAir HFA Inhaler] ~11/23/16 Cyclobenzaprine HCl [Flexeril 5 MG 5 mg PO Q8HR PRN #10 tab 11/26/16 Unknown Rx TAB] Furosemide [Lasix TAB] 40 mg PO QDAY #30 tablet 11/26/16 Unknown Rx Losartan [Cozaar] 100 mg PO QDAY #30 tablet 11/26/16 Unknown Rx amLODIPine 10 mg PO DAILY #30 tablet 11/26/16 Unknown Rx carvediloL [Coreg] 25 mg PO BID #60 tablet 11/26/16 Unknown Rx guaiFENesin/CODEINE [Robitussin AC] 5 ml PO Q4H PRN #20 oral.liqd 11/26/16 Unknown Rx ED Physical Exam - General Limitations: No Limitations General appearance: alert, in no apparent distress - Head Head exam: Present: atraumatic, normocephalic - Eye Eye exam: Present: normal appearance - ENT ENT exam: Present: mucous membranes moist - Neck Neck exam: Present: normal inspection - Respiratory Respiratory exam: Present: respiratory distress, wheezes, chest wall tenderness. Absent: normal lung sounds bilaterally, rales, rhonchi - Cardiovascular Cardiovascular Exam: Present: regular rate, normal rhythm, normal heart sounds. Absent: systolic murmur, diastolic murmur, rubs, gallop - GI/Abdominal GI/Abdominal exam: Present: soft, normal bowel sounds. Absent: distended, tenderness, guarding, rebound - Extremities Exam Extremities exam: Present: normal inspection - Back Exam Back exam: Present: normal inspection - Neurological Exam Neurological exam: Present: alert, oriented X3 - Psychiatric Psychiatric exam: Present: normal affect, normal mood - Skin Skin exam: Present: warm, dry, intact, normal color. Absent: rash ED Course Vital Signs 09/25/19 09/25/19 09/25/19 17:10 17:52 18:00 Temperature 98.3 F Pulse Rate 91 H 90 96 H Respiratory 18 20 16 Rate Blood Pressure 149/90 147/97 O2 Sat by Pulse 97 95 95 Oximetry 09/25/19 09/25/19 09/25/19 18:15 18:30 18:46 Temperature Pulse Rate 90 87 85 Respiratory 15 15 Rate Blood Pressure 155/97 155/97 155/97 O2 Sat by Pulse 98 94 Oximetry ED Medical Decision Making - Lab Data Result diagrams: 09/25/19 18:31 09/25/19 18:31 Lab Results 09/25/19 09/25/19 09/25/19 Range/Units 18:31 18:31 18:31 WBC 4.7 (4.5-11.0) K/mm3 RBC 4.33 (3.65-5.03) M/mm3 Hgb 11.2 (10.1-14.3) gm/dl Hct 34.5 (30.3-42.9) % MCV 80 (79-97) fl MCH 26 L (28-32) pg MCHC 33 (30-34) % RDW 17.6 H (13.2-15.2) % Plt Count 247 (140-440) K/mm3 [place] % (Auto) Manager Food Safety PT 12.0 L (12.2-14.9) Sec. INR 0.88 (0.87-1.13) APTT 29.8 (24.2-36.6) Sec. Sodium 137 (137-145) mmol/L Potassium 4.1 (3.6-5.0) mmol/L Chloride 100.0 (98-107) mmol/L Carbon Dioxide 25 (22-30) mmol/L Anion Gap 16 mmol/L BUN 22 H (7-17) mg/dL Creatinine 1.3 H (0.7-1.2) mg/dL Estimated GFR 53 ml/min BUN/Creatinine Ratio 17 % Glucose 92 (65-100) mg/dL Calcium 9.7 (8.4-10.2) mg/dL Troponin T (0.00-0.029) ng/mL NT-Pro-B Natriuret Pep (0-450) pg/mL 09/25/19 Range/Units 18:31 WBC (4.5-11.0) K/mm3 RBC (3.65-5.03) M/mm3 Hgb (10.1-14.3) gm/dl Hct (30.3-42.9) % MCV (79-97) fl MCH (28-32) pg MCHC (30-34) % RDW (13.2-15.2) % Plt Count (140-440) K/mm3 [place] % (Auto) PT (12.2-14.9) Sec. INR (0.87-1.13) APTT (24.2-36.6) Sec. Sodium (137-145) mmol/L Potassium (3.6-5.0) mmol/L Chloride (98-107) mmol/L Carbon Dioxide (22-30) mmol/L Anion Gap mmol/L BUN (7-17) mg/dL Creatinine (0.7-1.2) mg/dL Estimated GFR ml/min BUN/Creatinine Ratio % Glucose (65-100) mg/dL Calcium (8.4-10.2) mg/dL Troponin T < 0.010 (0.00-0.029) ng/mL NT-Pro-B Natriuret Pep 76.52 (0-450) pg/mL - EKG Data -: EKG Interpreted by Hi EKG shows normal: sinus rhythm, axis, intervals, QRS complexes, ST-T waves - EKG Data Interpretation: normal EKG - Radiology Data Ordering Physician: EUGENIO DELUCA MD Date of Service: 09/25/19 Procedure(s): XR chest 1V ap Accession Number(s): [id number] cc: EUGENIO DELUCA MD Fluoro Time In Minutes: CHEST 1 VIEW INDICATION: dyspnea. COMPARISON: 11/24/2016 FINDINGS: Support devices: ICD in satisfactory position. Heart: Within normal limits. Lungs/Pleura: No acute air space or interstitial disease. Additional findings: None. IMPRESSION: No acute abnormality. Signer Name: Ruben Luna MD Signed: 09/25/2019 6:52 PM Workstation Name: [id number] Transcribed By: ES Dictated By: Ruben Luna MD Electronically Authenticated By: Ruben Luna MD Signed Date/Time: 09/25/19 931 - Medical Decision Making After hour-long neb treatment the patient is continued to wheeze. O2 sat is 93 to 94%. Patient still in mild respiratory distress. Patient to be admitted to the hospitalist service for continued treatment and observation. Critical care attestation.: If time is entered above; I have spent that time in minutes in the direct care of this critically ill patient, excluding procedure time. ED Disposition Clinical Impression: Acute asthma exacerbation Qualifiers: Asthma severity: moderate Asthma persistence: persistent Qualified Code(s): J45.41 - Moderate persistent asthma with (acute) exacerbation Disposition: 09 OP ADMIT IP TO THIS HOSP Is pt being admited?: Yes Does the pt Need Aspirin: No Condition: Stable Instructions: Asthma (ED) Time of Disposition: 19:26
[2019-09-25 19:28] LABS: Anisocytosis 1+; Basophils % (Manual) 0 % (0.0-1.8); Hypochromasia 1+; Total Cells Counted 100
[2019-09-25] MEDS ORDERED: LORazepam 2 MG/ML VIAL IV ONE (19:47)
[2019-09-25] MEDS ORDERED: MORPHINE 2 MG/1 ML INJ IV PRN (19:47)
[2019-09-25] MEDS ORDERED: MAGNESIUM SULFATE 1 GM in SODIUM CHLORIDE 0.9% 50 ML IV ONE (20:00)
[2019-09-26] MEDS: oxyCODONE /ACETAMINOPHEN 5-325MG TAB PO PRN ×4 (00:27→21:03)
[2019-09-26 04:34] LABS: Basophils % (Auto) 0.6 % (0.0-1.8); Hematocrit 34.9 % (30.3-42.9); Hemoglobin 11.2 gm/dl (10.1-14.3); Lymphocytes # (Auto) 0.6 K/mm3 (1.2-5.4); Lymphocytes % (Auto) 13.4 % (13.4-35.0); Mean Corpuscular HGB Conc 32 % (30-34); Mean Corpuscular Volume 80 fl (79-97); Monocytes # (Auto) 0.1 K/mm3 (0.0-0.8); Monocytes % (Auto) 1.8 % (0.0-7.3); Platelet Count 249 K/mm3 (140-440); Red Blood Count 4.37 M/mm3 (3.65-5.03); Red Cell Distribution Width 17.2 % (13.2-15.2)
[2019-09-26 04:49] LABS: Calcium 9.6 mg/dL (8.4-10.2)
[2019-09-26] MEDS: ALBUTEROL 2.5 MG/3 ML NEBU IH PRN ×3 (09:09→20:43)
--- NOTE | 2019-09-26 10:13 | Consultation ---
History of Present Illness Consult date: 09/26/19 Requesting physician: DENISE WHITE Consult reason: congestive heart failure History of present illness: Pt is a 49 y.o. AA female with a past medical hx of HFrEF (s/p ICD in 2012 and lead replacement in 2014), non-ischemic CMP, HTN, HLD, DM, and asthma. She is followed in our office by Dr. UNPUR [place]ron[place]. Pt presented with c/o of SOB, syncopal episode, and CP. She reports that she experienced a syncopal episode when trans itioning from a sitting to standing position x 5 days ago. She reported lightheadedness upon standing, followed by LOC. When she awoke, she noted bilateral shoulder and ankle tingling/numbness. She also complained of generalized weakness, productive cough, and nasal congestion x 4 days. Pt states she developed a 10/10 constant jabbing pain in her upper left chest x 3 days ago. She reports being out of her medications x 1 week prior to admission. Upon exam, she describes pleuritic CP, which she rates as 8/10. She also reports SOB and chronic orthopnea, which she attributes to asthma. Pt denies edema and palpitations. CXR showed no acute findings. BNP WNL. Negative trop. Last echo completed 09/22/2019 - showed EF 40-45%, mod LVH. Nuclear stress test completed 2010 - negative for ischemia, EF 35%. Past History Past Medical History: diabetes, heart failure (EF 40-45%), hypertension, hyperlipidemia, other (asthma) Past Surgical History: Other (ICD placement) Social history: single. denies: smoking, alcohol abuse, prescription drug abuse Family history: CAD, hypertension Medications and Allergies Allergies Allergy/AdvReac Type Severity Reaction Status Date / Time No Known Allergies Allergy Unverified 05/11/15 16:15 Home Medications Medication Instructions Recorded Confirmed Last Taken Type Albuterol INH(or & Nicu Only) 2 puff IH QID PRN #1 inhalation 03/16/16 09/26/19 1 Day Ago Rx [ProAir HFA Inhaler] ~11/23/16 Albuterol INH(or & Nicu Only) 2 puff IH QID PRN #1 inhalation 11/22/16 09/26/19 1 Day Ago Rx [ProAir HFA Inhaler] ~11/23/16 Cyclobenzaprine HCl [Flexeril 5 MG 5 mg PO Q8HR PRN #10 tab 11/26/16 09/26/19 Unknown Rx TAB] Furosemide [Lasix TAB] 40 mg PO QDAY #30 tablet 11/26/16 09/26/19 Unknown Rx Losartan [Cozaar] 100 mg PO QDAY #30 tablet 11/26/16 09/26/19 Unknown Rx amLODIPine 10 mg PO DAILY #30 tablet 11/26/16 09/26/19 Unknown Rx carvediloL [Coreg] 25 mg PO BID #60 tablet 11/26/16 09/26/19 Unknown Rx guaiFENesin/CODEINE [Robitussin AC] 5 ml PO Q4H PRN #20 oral.liqd 11/26/16 09/26/19 Unknown Rx Active Meds: Active Medications Acetaminophen (Tylenol) 650 mg PO Q4H PRN PRN Reason: Pain MILD(1-3)/Fever >100.5/ANDRES Albuterol (Proventil) 2.5 mg IH Q4HRT PRN PRN Reason: Shortness Of Breath Last Admin: 09/26/19 09:09 Dose: 2.5 mg Documented by: Morphine Sulfate (Morphine) 0.5 mg IV Q6H PRN PRN Reason: Pain, Moderate (4-6) Ondansetron HCl (Zofran) 4 mg IV Q8H PRN PRN Reason: Nausea And Vomiting Oxycodone/Acetaminophen (Percocet 5/325) 1 tab PO Q6H PRN PRN Reason: Pain, Moderate (4-6) Last Admin: 09/26/19 06:26 Dose: 1 tab Documented by: Pneumococcal Polyvalent Vaccine (Pneumovax 23) 0.5 ml IM .ONCE ONE Stop: 09/26/19 12:01 Sodium Chloride (Sodium Chloride Flush Syringe 10 Ml) 10 ml IV BID REINA Last Admin: 09/25/19 21:58 Dose: 10 ml Documented by: Sodium Chloride (Sodium Chloride Flush Syringe 10 Ml) 10 ml IV PRN PRN PRN Reason: LINE FLUSH Review of Systems Constitutional: fatigue, no fever, no chills Ears, nose, mouth and throat: nasal congestion, nasal discharge, sore throat, no ear pain Breasts: normal Cardiovascular: chest pain, orthopnea, syncope, shortness of breath, dyspnea on exertion, no palpitations, no rapid/irregular heart beat, no edema, no lightheadedness Respiratory: cough with sputum, shortness of breath, wheezing Gastrointestinal: no abdominal pain, no nausea, no vomiting, no diarrhea, no constipation Genitourinary Female: no pelvic pain, no dysuria Musculoskeletal: no muscle weakness, no muscle cramps Integumentary: no rash, no redness, no wounds Neurological: numbness (Shoulders & ankles), tingling (Shoulders & ankles), syncope, no seizures, no vertigo, no headaches Endocrine: no cold intolerance, no heat intolerance Hematologic/Lymphatic: no easy bruising, no easy bleeding Allergic/Immunologic: no urticaria Physical Examination Last Vital Signs Temp 98.0 F 09/26/19 06:07 Pulse 94 H 09/26/19 09:10 Resp 20 09/26/19 09:10 BP 132/88 09/26/19 06:07 Pulse Ox 95 09/26/19 09:11 General appearance: no acute distress HEENT: Positive: EOMI, Normocephaly, Mucus Membranes Dry Neck: Positive: neck supple, trachea midline. Negative: JVD/HJR Cardiac: Positive: Reg Rate and Rhythm, S1/S2 Lungs: Positive: Wheezes Neuro: Positive: Grossly Intact, Numbness (Bilateral shoulder & ankle numbness), Tingling (Bilateral shoulder & ankle tingling) Abdomen: Positive: Soft, Active Bowel Sounds. Negative: Tender, Distended Skin: Positive: Clear. Negative: Wound Musculoskeletal: No Pain Extremities: Present: normal, upper extr. pulses, lower extr. pulses. Absent: edema Results 09/26/19 04:06 09/26/19 04:06 Coagulation 09/25/19 Range/Units 18:31 PT 12.0 L (12.2-14.9) Sec. INR 0.88 (0.87-1.13) APTT 29.8 (24.2-36.6) Sec. CBC 09/25/19 09/26/19 Range/Units 18:31 04:06 WBC 4.7 4.7 (4.5-11.0) K/mm3 RBC 4.33 4.37 (3.65-5.03) M/mm3 Hgb 11.2 11.2 (10.1-14.3) gm/dl Hct 34.5 34.9 (30.3-42.9) % Plt Count 247 249 (140-440) K/mm3 Lymph # 0.6 L (1.2-5.4) K/mm3 [place] # 0.1 (0.0-0.8) K/mm3 Eos # 0.0 (0.0-0.4) K/mm3 Baso # 0.0 (0.0-0.1) K/mm3 Comprehensive Metabolic Panel 09/25/19 09/26/19 Range/Units 18:31 04:06 Sodium 137 137 (137-145) mmol/L Potassium 4.1 4.4 (3.6-5.0) mmol/L Chloride 100.0 99.6 (98-107) mmol/L Carbon Dioxide 25 23 (22-30) mmol/L BUN 22 H 24 H (7-17) mg/dL Creatinine 1.3 H 1.3 H (0.7-1.2) mg/dL Glucose 92 197 H (65-100) mg/dL Calcium 9.7 9.6 (8.4-10.2) mg/dL - Imaging and Cardiology EKG: report reviewed, image reviewed - EKG Interpretation EKG: no acute changes EKG interpretations - Telemetry EKG Rhythm: Sinus Rhythm - EKG Sinus rhythms and dysrhythmias: sinus rhythm Assessment and Plan Pt is stable form a cardiac standpoint. No apparent clinical evidence of acutely decompensated heart failure. Her primary issue appears to be asthma exacerbation. Resume home Amlodipine and Losartan. Convert home Coreg to Toprol in setting of asthma with acute exacerbation. Hold home Lasix and Aldactone in setting of MARILYN. Interrogate AICD in setting of syncopal episode. Initiate remote telemetry. Ob tain orthostatics. The patient has been seen in conjunction with Dr. Deleon, who agrees with the assessment and plan of care. - Patient Problems (1) Acute asthma exacerbation Current Visit: Yes Status: Acute Qualifiers: Asthma severity: moderate Asthma persistence: persistent Qualified Code(s): J45.41 - Moderate persistent asthma with (acute) exacerbation (2) Chronic HFrEF (heart failure with reduced ejection fraction) Current Visit: Yes Status: Chronic (3) Non-ischemic cardiomyopathy Current Visit: Yes Status: Chronic (4) Automatic implantable cardioverter-defibrillator in situ Current Visit: Yes Status: Chronic (5) MARILYN (acute kidney injury) Current Visit: Yes Status: Acute (6) HTN (hypertension) Current Visit: Yes Status: Chronic Qualifiers: Hypertension type: essential hypertension Qualified Code(s): I10 - Essent ial (primary) hypertension (7) Hyperlipidemia Current Visit: Yes Status: Chronic Qualifiers: Hyperlipidemia type: mixed hyperlipidemia Qualified Code(s): E78.2 - Mixed hyperlipidemia (8) Diabetes mellitus Current Visit: Yes Status: Chronic Qualifiers: Diabetes mellitus type: type 2
[2019-09-26] MEDS ORDERED: FLU VACC QUAD 2019-20 (3 YR UP)/PF 60 MCG/0.5 ML SYRINGE IM ONE (12:00)
[2019-09-26] MEDS ORDERED: PNEUMOCOCCAL 23 Valent 0.5 ML VIAL IM ONE (12:00)
--- NOTE | 2019-09-26 12:28 | Progress Note ---
Assessment and Plan /Acute Respiratory failure likely from asthma exacerbation Room air O2 88% on admission cont Supplemental oxygen, nebulizer therapy, pulse oximetry, scheduled steroid We will also check for influenza / Asthma exacerbation - Will provide scheduled nebulizer breathing treatment and as needed - Place on empiric steroid and antibiotic - will get sputum culture, chest x-ray was unremarkable - Provide supplemental oxygen to keep oxygen saturation above 92% - Consider to consult pulmonary if no improvement in next 24 hours / CHF (congestive heart failure), compensated Last echo completed 09/22/2019 - showed EF 40-45% and Status post ICD placement Strict I's/O, daily weight, cardiology consult placed in ED. Normal BNP / MARILYN (acute kidney injury), likely has CKD monitor urine output every shift repeat BMP in a.m. to monitor serum creatinine. /Morbid obesity Dietary and exercise recommendations on discharge when Clinically stable /DVT prophylaxis SCD to bilateral lower extremities while in bed, patient is ambulatory. 09/26/19 Patient remains symptomatic, discussed with assistant merchandiser -cardiac rodriguez stable will continue to monitor possible DC tomorrow morning if clinically improves Brief history: 49 YO Female with Systolic CHF S/P ICD Placement, HTN, Asthma, Noncompliance, presents to ED for evaluation of shortness of breath over the past 3 days with worsening symptoms over the past 12 hours. Pt acknowledged nasal congestion, productive cough with brown mucus, malaise, body aches, and subjective fever. She is admitted for acute asthma exacerbation. Subjective Date of service: 09/26/19 Interval history: Patient seen and examined. Medical records and medication list reviewed. No acute event overnight noted by the RN. Patient denies any chest pain complains of difficulty breathing on exertion. Patient is tolerating diet. Discussed plan of care at bedside with patient. Objective - Exam Narrative Exam: GENERAL: well-developed morbidly obese female lying on bed appeared to be in no discomfort. HEENT: Normocephalic. Atraumatic. No conjunctival congestion or icterus. Patient has moist mucous membranes. NECK: Supple. Trachea midline. CHEST/LUNGS: Positive for bilateral wheezes auscultated bilaterally, breathing nonlabored. No crackles or rhonchi. HEART/CARDIOVASCULAR: Regular in rate and rhythm. S1 and S2 positive. ABDOMEN: Abdomen is soft, nontender. Patient has normal bowel sounds. SKIN: There is no rash. Warm and dry. NEURO: No focal motor deficit. Follows command. MUSCULOSKELETAL: No joint effusion or tenderness. EXTRIMITY: No edema, no cyanosis or clubbing. PSYCH: Cooperative. - Constitutional Vitals: Vital Signs - 12hr 09/26/19 09/26/19 09/26/19 00:27 01:27 06:07 Temperature 98.0 F Pulse Rate 101 H Pulse Rate [ Posterior Bilateral Throughout] Respiratory 20 18 20 Rate Respiratory Rate [Posterior Bilateral Throughout] Blood Pressure 132/88 O2 Sat by Pulse 92 Oximetry 09/26/19 09/26/19 09/26/19 06:26 09:10 09:11 Temperature Pulse Rate Pulse Rate [ 94 H Posterior Bilateral Throughout] Respiratory 20 Rate Respiratory 20 Rate [Posterior Bilateral Throughout] Blood Pressure O2 Sat by Pulse 95 Oximetry - Labs CBC & Chem 7: 09/26/19 04:06 09/26/19 04:06 Labs: Abnormal lab results 09/25/19 09/25/19 09/25/19 Range/Units 18:31 18:31 18:31 MCH 26 L (28-32) pg RDW 17.6 H (13.2-15.2) % Lymph # (1.2-5.4) K/mm3 Seg Neutrophils % (40.0-70.0) % Monocytes % (Manual) 17.0 H (0.0-7.3) % PT 12.0 L (12.2-14.9) Sec. BUN 22 H (7-17) mg/dL Creatinine 1.3 H (0.7-1.2) mg/dL Glucose (65-100) mg/dL 09/26/19 09/26/19 Range/Units 04:06 04:06 MCH 26 L (28-32) pg RDW 17.2 H (13.2-15.2) % Lymph # 0.6 L (1.2-5.4) K/mm3 Seg Neutrophils % 84.2 H (40.0-70.0) % Monocytes % (Manual) (0.0-7.3) % PT (12.2-14.9) Sec. BUN 24 H (7-17) mg/dL Creatinine 1.3 H (0.7-1.2) mg/dL Glucose 197 H (65-100) mg/dL
[2019-09-26] MEDS ORDERED: methylPREDNISolone Sod Succinate 125 MG/2 ML INJ IV SCH (12:30)
[2019-09-26] MEDS ORDERED: AZITHROMYCIN 500 MG in SODIUM CHLORIDE 0.9% 250ML 250 ML IV SCH (13:30)
[2019-09-26] MEDS: AZITHROMYCIN 250 MG TAB PO SCH (21:02)
[2019-09-26] MEDS: predniSONE 20 MG TAB PO SCH (21:03)
[2019-09-27] MEDS: ALBUTEROL 2.5 MG/3 ML NEBU IH PRN ×2 (06:31→15:35)
[2019-09-27] MEDS: predniSONE 20 MG TAB PO SCH (08:24)
[2019-09-27] MEDS: oxyCODONE /ACETAMINOPHEN 5-325MG TAB PO PRN (08:24)
[2019-09-27] MEDS ORDERED: amLODIPine 10 MG TAB PO SCH (10:00)
[2019-09-27] MEDS ORDERED: METOPROLOL SUCCINATE XL 25 MG TAB PO SCH (10:00)
[2019-09-27] MEDS ORDERED: amLODIPine 5 MG TAB PO SCH (10:00)
[2019-09-27] MEDS ORDERED: NON-FORMULARY EACH (Losartan [Cozaar] 100 MG) PO SCH (10:00)
[2019-09-27] MEDS ORDERED: LOSARTAN 50 MG TAB PO SCH (10:00)
--- NOTE | 2019-09-27 11:35 | Progress Note ---
Assessment and Plan AICD interrogation yesterday - showed 1 VT episode on 08/15 terminated by 1 burst ATP. No acute events correlated with syncopal episode. Orthostatics noted to be positive. D/c Amlodipine, continue Toprol and Losartan. Will monitor as outpatient. Pt is currently stable form a cardiac standpoint. She can be discharged from a Cardiology standpoint on present cardiac regimen. Recommend f/u in our office with Dr. NUPUR Oron[place] within 1 week ([phone]). The patient has been seen in conjunction with Dr. Deleon, who agrees with the assessment and plan of care. - Patient Problems (1) Acute asthma exacerbation Current Visit: Yes Status: Acute Qualifiers: Asthma severity: moderate Asthma persistence: persistent Qualified Code(s): J45.41 - Moderate persistent asthma with (acute) exacerbation (2) Chronic HFrEF (heart failure with reduced ejection fraction) Current Visit: Yes Status: Chronic (3) Non-ischemic cardiomyopathy Current Visit: Yes Status: Chronic (4) Automatic implantable cardioverter-defibrillator in situ Current Visit: Yes Status: Chronic (5) MARILYN (acute kidney injury) Current Visit: Yes Status: Acute (6) HTN (hypertension) Current Visit: Yes Status: Chronic Qualifiers: Hypertension type: essential hypertension Qualified Code(s): I10 - Essential (primary) hypertension (7) Hyperlipidemia Current Visit: Yes Status: Chronic Qualifiers: Hyperlipidemia type: mixed hyperlipidemia Qualified Code(s): E78.2 - Mixed hyperlipidemia (8) Diabetes mellitus Current Visit: Yes Status: Chronic Qualifiers: Diabetes mellitus type: type 2 Subjective Date of service: 09/27/19 Principal diagnosis: acute asthma exacerbation Interval history: Pt is resting comfortably in bed. No acute distress. SOB and wheezing improved. Tele reviewed - in NSR with no acute events overnight. Objective Vital Signs Temp Pulse Pulse Resp Resp Resp BP 09/27/19 08:56 09/27/19 06:00 87 20 09/27/19 04:17 98.2 F 20 139/77 09/26/19 22:03 18 09/26/19 22:00 18 09/26/19 21:12 20 18 09/26/19 21:03 18 09/26/19 20:46 09/26/19 20:45 102 H 20 09/26/19 17:53 96 H 18 09/26/19 16:51 97.5 F L 91 H 22 144/88 09/26/19 15:28 115/74 09/26/19 15:27 156/91 Pulse Ox 09/27/19 08:56 93 09/27/19 06:00 09/27/19 04:17 09/26/19 22:03 09/26/19 22:00 09/26/19 21:12 93 09/26/19 21:03 09/26/19 20:46 97 09/26/19 20:45 09/26/19 17:53 09/26/19 16:51 88 09/26/19 15:28 09/26/19 15:27 - Physical Examination HEENT: Positive: EOMI, Normocephaly, Mucus Membranes Dry Neck: Positive: neck supple, trachea midline. Negative: JVD/HJR Neuro: Positive: Grossly Intact, Numbness (Bilateral shoulder & ankle numbness), Tingling (Bilateral shoulder & ankle tingling) Abdomen: Positive: Soft, Active Bowel Sounds. Negative: Tender, Distended Skin: Positive: Clear. Negative: Wound Musculoskeletal: No Pain Extremities: Present: normal, upper extr. pulses, lower extr. pulses. Absent: edema - Imaging and Cardiology EKG: report reviewed, image reviewed - EKG Sinus rhythms and dysrhythmias: sinus rhythm
--- NOTE | 2019-09-27 12:32 | Discharge Summary ---
Providers - Providers Date of Admission: 09/26/19 13:46 Date of discharge: 09/27/19 Attending physician: KARIME VALIENTE 09/25/19 20:11 Consult to Cardiology [CONS] Routine Consulting Provider: ABISAI PIEDRA Reason For Exam: chf Primary care physician: DARI LYON Hospitalization Condition: Stable Pertinent studies: CXR Hospital course: 49 YO Female with Systolic CHF S/P ICD Placement, HTN, Asthma, Noncompliance, presents to ED for evaluation of shortness of breath over the past 3 days with w orsening symptoms over the past 12 hours. Pt acknowledged nasal congestion, productive cough with brown mucus, malaise, body aches, and subjective fever. She was admitted for acute asthma exacerbation. Discharge Diagnosis and Mx: /Acute Respiratory failure likely from asthma exacerbation Room air O2 88% on admission cont Supplemental oxygen, nebulizer therapy, pulse oximetry, scheduled steroid We will also check for influenza / Asthma exacerbation - Will provide scheduled nebulizer breathing treatment and as needed - Place on empiric steroid and antibiotic - will get sputum culture, chest x-ray was unremarkable - Provide supplemental oxygen to keep oxygen saturation above 92% - Consider to consult pulmonary if no improvement in next 24 hours / CHF (congestive heart failure), compensated Last echo completed 09/22/2019 - showed EF 40-45% and Status post ICD placement Strict I's/O, daily weight, cardiology consult placed in ED. Normal BNP / MARILYN (acute kidney injury), likely has CKD monitor urine output every shift repeat BMP in a.m. to monitor serum creatinine. /Morbid obesity Dietary and exercise recommendations on discharge when Clinically stable /DVT prophylaxis SCD to bilateral lower extremities while in bed, patient is ambulatory. Disposition: home with Physical exam GENERAL: well-developed morbidly obese female lying on bed appeared to be in no discomfort. HEENT: Normocephalic. Atraumatic. No conjunctival congestion or icterus. Patient has moist mucous membranes. NECK: Supple. Trachea midline. CHEST/LUNGS: Positive for bilateral wheezes auscultated bilaterally, breathing nonlabored. No crackles or rhonchi. HEART/CARDIOVASCULAR: Regular in rate and rhythm. S1 and S2 positive. ABDOMEN: Abdomen is soft, nontender. Patient has normal bowel sounds. SKIN: There is no rash. Warm and dry. NEURO: No focal motor deficit. Follows command. MUSCULOSKELETAL: No joint effusion or tenderness. EXTRIMITY: No edema, no cyanosis or clubbing. PSYCH: Cooperative. Disposition: DC-30 STILL A PATIENT Time spent for discharge: 34 minutes Core Measure Documentation - Palliative Care Palliative Care/ Comfort Measures: Not Applicable - Core Measures Any of the following diagnoses?: none Exam - Physical Exam Narrative exam: GENERAL: well-developed morbidly obese female lying on bed appeared to be in no discomfort. HEENT: Normocephalic. Atraumatic. No conjunctival congestion or icterus. Patient has moist mucous membranes. NECK: Supple. Trachea midline. CHEST/LUNGS: Positive for bilateral wheezes auscultated bilaterally, breathing nonlabored. No crackles or rhonchi. HEART/CARDIOVASCULAR: Regular in rate and rhythm. S1 and S2 positive. ABDOMEN: Abdomen is soft, nontender. Patient has normal bowel sounds. SKIN: There is no rash. Warm and dry. NEURO: No focal motor deficit. Follows command. MUSCULOSKELETAL: No joint effusion or tenderness. EXTRIMITY: No edema, no cyanosis or clubbing. PSYCH: Cooperative. - Constitutional Vitals: Temp Pulse Resp BP Pulse Ox 98.2 F 87 20 139/77 93 09/27/19 04:17 09/27/19 06:00 09/27/19 06:00 09/27/19 04:17 09/27/19 08:56 Plan Activity: advance as tolerated Weight Bearing Status: Weight Bear as Tolerated Diet: low fat, low salt Follow up with: DARI LYON MD [Primary Care Provider] - 7 Days Prescriptions: predniSONE [Deltasone] 60 mg PO QDAY #5 tablet Metoprolol Xl [Metoprolol SUCCINATE ER TAB] 25 mg PO QDAY #30 tablet guaiFENesin ER [Mucinex ER] 600 mg PO Q12H #14 tablet.er ALBUTEROL NEB's [Proventil 0.083% NEBS] 2.5 mg IH Q4HRT PRN #30 nebu PRN Reason: Shortness Of Breath Azithromycin [Zithromax TAB] 500 mg PO DAILY #5 tablet
[2019-09-27 12:35] VITALS: BP 160/94
[2019-09-27] MEDS: AZITHROMYCIN 250 MG TAB PO SCH (12:51)
== END 2019-09-27 14:05 | disposition home or self-care (01) | DRG 189 ==
LOC: ED 16:34 → 3A 19:20 → OBSVTOIN 09-26 13:46
PROVIDERS: ADMIT Internal Medicine; ATTEND Internal Medicine
PROC: 3E0234Z Introduction of Serum, Toxoid and Vaccine into Muscle, Percutaneous Approach (ICD-10-PCS; principal; 2019-09-26)
PROC: 4A033R1 Measurement of Arterial Saturation, Peripheral, Percutaneous Approach (ICD-10-PCS; 2019-09-27)
DX: J96.01 Acute respiratory failure with hypoxia (principal); I13.0 Hypertensive heart and chronic kidney disease with heart failure and stage 1 through stage 4 chronic kidney disease, or unspecified chronic kidney disease; I50.22 Chronic systolic (congestive) heart failure; J45.41 Moderate persistent asthma with (acute) exacerbation; N17.9 Acute kidney failure, unspecified; Z68.42 Body mass index [BMI] 45.0-49.9, adult; I25.5 Ischemic cardiomyopathy; E78.2 Mixed hyperlipidemia; E66.01 Morbid (severe) obesity due to excess calories; N18.9 Chronic kidney disease, unspecified; E11.22 Type 2 diabetes mellitus with diabetic chronic kidney disease; E88.81 Metabolic syndrome and other insulin resistance; Z23 Encounter for immunization; Z82.49 Family history of ischemic heart disease and other diseases of the circulatory system; Z95.810 Presence of automatic (implantable) cardiac defibrillator; Z91.14 Patient's other noncompliance with medication regimen; Z79.4 Long term (current) use of insulin; Z71.3 Dietary counseling and surveillance
CPT/HCPCS: 36415; 36600; 71045; 80048; 83880; 84484; 85007; 85025; 85610; 85730; 87400; 90686; 90732; 93005; 93010; 94640; 94644; G0378; J0456; J2060; J2270; J2930; J3475; J7050; J7512

== ENCOUNTER 2020-07-08 12:31 | Outpatient (CLI) | payer OTHER ==
[2020-07-08] MEDS ORDERED: ALBUTEROL 2.5 MG/3 ML NEBU IH ONE (13:12)
== END 2020-07-08 12:32 | disposition home or self-care (01) ==
LOC: PF 12:31
PROVIDERS: ATTEND Internal Medicine
DX: R06.02 Shortness of breath (principal); I11.0 Hypertensive heart disease with heart failure; I50.9 Heart failure, unspecified
CPT/HCPCS: 94060; 94640; 94729; A9270

== ENCOUNTER 2021-03-10 11:00 | Outpatient (CLI) | payer MEDICARE | END 2021-03-10 11:01 | disposition home or self-care (01) | LOC: SLR 11:00 | PROVIDERS: ATTEND Otolaryngology | DX: G47.33 Obstructive sleep apnea (adult) (pediatric) (principal) | CPT/HCPCS: 95811 ==

== ENCOUNTER 2021-11-26 16:06 | Emergency (ER) | payer MEDICARE ==
[2021-11-26] MEDS ORDERED: IPRATROPIUM/ALBUTEROL SULFATE 3 ML AMPUL.NEB IH ONE (17:12)
[2021-11-26] MEDS ORDERED: methylPREDNISolone Sod Succinate 125 MG/2 ML INJ IV ONE (17:12)
[2021-11-26] MEDS ORDERED: MAGNESIUM SULFATE 2 GM/50 ML BAG IV ONE (17:13)
[2021-11-26] MEDS ORDERED: oxyCODONE /ACETAMINOPHEN 5-325MG TAB PO ONE (17:14)
--- NOTE | 2021-11-26 17:35 | XRay Report ---
CHEST 1 VIEW 11/26/2021 4:29 PM INDICATION / CLINICAL INFORMATION: sob, wheeze. COMPARISON: 11/19/21 FINDINGS: SUPPORT DEVICES: Stable pacemaker. HEART / MEDIASTINUM: Cardiomegaly, similar prior exam. LUNGS / PLEURA: There is bilateral vascular congestion with trace pleural effusions. No focal airspac e disease. No pneumothorax. ADDITIONAL FINDINGS: No significant additional findings. IMPRESSION: 1. Cardiomegaly with pulmonary edema. Trace bilateral pleural effusions. Signer Name: Javier Castellanos MD Signed: 11/26/2021 5:31 PM Workstation Name: [email or web address]
[2021-11-26 18:03] VITALS: BP 173/96
[2021-11-26] MEDS ORDERED: ALBUTEROL 2.5 MG/3 ML NEBU IH ONE (18:26)
[2021-11-26] MEDS ORDERED: POTASSIUM CHLORIDE ER 20 MEQ TAB PO ONE (18:26)
[2021-11-26] MEDS ORDERED: FUROSEMIDE 40 MG/4 ML INJ IV ONE (18:26)
--- NOTE | 2021-11-26 20:02 | Emergency Department Report ---
ED Shortness of Breath HPI - General Chief Complaint: Dyspnea/Respdistress Stated Complaint: SHORTNESS OF BREATH Time Seen by Provider: 11/26/21 17:01 Source: patient, EMS, old records reviewed Mode of arrival: Stretcher Limitations: No Limitations - History of Present Illness Initial Comments: 51-year-old female the past medical history of AICD, CHF, morbid obesity, sleep apnea, COPD with recent home oxygen use, presents to the hospital with complaints of wheezing and shortness of breath since yesterday. Patient ran out of her albuterol inhaler and does not currently have a nebulizer machine although she does have nebulizer treatments. She complains of chest tightness and shortness of breath worse when lying supine and with ambulation. Patient received albuterol in route with some improvement patient was recently admitted here by me earlier this month and was 3 days ago on November 23 after her defibrillator shocked her several times, electrolyte abnormalities, and hypoxia with history of obstructive sleep apnea. Patient was discharged on home oxygen which patient states she has received. Patient also states she is taking potassium supplements. - Related Data Previous Rx's Medication Instructions Recorded Last Taken Type Cyclobenzaprine HCl [Flexeril 5 MG 5 mg PO Q8HR PRN #10 tab 11/26/16 Unknown Rx TAB] ALBUTEROL NEB's [Proventil 0.083% 2.5 mg IH Q4HRT PRN #30 nebu 09/27/19 Unknown Rx NEBS] guaiFENesin ER [Mucinex ER] 600 mg PO Q12H #14 tablet.er 09/27/19 Unknown Rx Sertraline [Zoloft] 25 mg PO QDAY tablet 11/23/21 Unknown Rx amLODIPine 10 mg PO DAILY 30 Days #30 tablet 11/23/21 Unknown Rx carvediloL [Coreg] 25 mg PO BID 30 Days #60 tablet 11/23/21 Unknown Rx hydrALAZINE [Apresoline TAB] 50 mg PO Q8HR 30 Days #90 tablet 11/23/21 Unknown Rx Albuterol Sulfate [Proventil Hfa] 6.7 gm IH Q4HR #1 11/26/21 Unknown Rx Nebulizer Accessories [Mouthpiece] 1 each MC PRN #1 each 11/26/21 Unknown Rx Nebulizer and Compressor [Easy Air 1 each MC PRN #1 each 11/26/21 Unknown Rx Compressor Nebulizer] predniSONE [Deltasone] 40 mg PO QDAY 5 Days tab 11/26/21 Unknown Rx Allergies Allergy/AdvReac Type Severity Reaction Status Date / Time No Known Allergies Allergy Verified 11/20/21 00:39 ED Review of Systems ROS: Stated complaint: SHORTNESS OF BREATH Other details as noted in HPI Comment: All other systems reviewed and negative ED Past Medical Hx - Past Medical History Hx Hypertension: Yes Hx Congestive Heart Failure: Yes Hx Diabetes: No Hx Asthma: Yes Hx COPD: Yes - Surgical History Hx Internal Defibrillator: Yes - Social History Smoking Status: Never Smoker - Medications Home Medications: Home Medications Medication Instructions Recorded Confirmed Last Taken Type Cyclobenzaprine HCl [Flexeril 5 MG 5 mg PO Q8HR PRN #10 tab 11/26/16 09/26/19 Unknown Rx TAB] ALBUTEROL NEB's [Proventil 0.083% 2.5 mg IH Q4HRT PRN #30 nebu 09/27/19 Unknown Rx NEBS] guaiFENesin ER [Mucinex ER] 600 mg PO Q12H #14 tablet.er 09/27/19 Unknown Rx Sertraline [Zoloft] 25 mg PO QDAY tablet 11/23/21 Unknown Rx amLODIPine 10 mg PO DAILY 30 Days #30 tablet 11/23/21 Unknown Rx carvediloL [Coreg] 25 mg PO BID 30 Days #60 tablet 11/23/21 Unknown Rx hydrALAZINE [Apresoline TAB] 50 mg PO Q8HR 30 Days #90 tablet 11/23/21 Unknown Rx Albuterol Sulfate [Proventil Hfa] 6.7 gm IH Q4HR #1 11/26/21 Unknown Rx Nebulizer Accessories [Mouthpiece] 1 each MC PRN #1 each 11/26/21 Unknown Rx Nebulizer and Compressor [Easy Air 1 each MC PRN #1 each 11/26/21 Unknown Rx Compressor Nebulizer] predniSONE [Deltasone] 40 mg PO QDAY 5 Days tab 11/26/21 Unknown Rx ED Physical Exam - General Limitations: No Limitations - Other Other exam information: General: No acute distress Head: Atraumatic Eyes: normal appearance ENT: Moist mucous membranes Neck: Normal appearance, no midline tenderness Chest: Mild tachypnea with bilateral wheezing, fair air movement CV: Regular rate and rhythm Abdomen: Soft, normal bowel sounds, nontender, nondistended, no rebound or guarding Back: Normal inspection Extremity: No calf tenderness, no leg edema, no leg exam Neuro: Alert O x 3, no facial asymmetry, speech clear, no gross motor sensory deficit Psych: Appropriate behavior Skin: No rash ED Course Vital Signs 11/26/21 11/26/21 11/26/21 16:44 16:45 16:47 Pulse Rate 90 Pulse Rate [ Anterior Bilateral Throughout] Respiratory 24 Rate Respiratory Rate [Anterior Bilateral Throughout] Blood Pressure O2 Sat by Pulse 95 94 91 Oximetry 11/26/21 11/26/21 11/26/21 16:49 16:51 16:53 Pulse Rate 91 H 87 87 Pulse Rate [ Anterior Bilateral Throughout] Respiratory 17 20 31 H Rate Respiratory Rate [Anterior Bilateral Throughout] Blood Pressure 157/94 157/94 139/94 O2 Sat by Pulse 91 94 95 Oximetry 11/26/21 11/26/21 11/26/21 16:55 16:57 16:59 Pulse Rate 90 89 86 Pulse Rate [ Anterior Bilateral Throughout] Respiratory 14 12 16 Rate Respiratory Rate [Anterior Bilateral Throughout] Blood Pressure 139/94 139/94 139/94 O2 Sat by Pulse 98 95 95 Oximetry 11/26/21 11/26/21 11/26/21 17:01 17:03 17:05 Pulse Rate 85 87 87 Pulse Rate [ Anterior Bilateral Throughout] Respiratory 18 29 H 16 Rate Respiratory Rate [Anterior Bilateral Throughout] Blood Pressure 139/94 139/94 139/94 O2 Sat by Pulse 96 96 95 Oximetry 11/26/21 11/26/21 11/26/21 17:07 17:09 17:11 Pulse Rate 88 91 H 92 H Pulse Rate [ Anterior Bilateral Throughout] Respiratory 20 18 17 Rate Respiratory Rate [Anterior Bilateral Throughout] Blood Pressure 139/94 139/94 139/94 O2 Sat by Pulse 95 94 Oximetry 11/26/21 11/26/21 11/26/21 17:13 17:15 17:17 Pulse Rate 88 90 90 Pulse Rate [ Anterior Bilateral Throughout] Respiratory 28 H 18 28 H Rate Respiratory Rate [Anterior Bilateral Throughout] Blood Pressure 139/94 139/94 139/94 O2 Sat by Pulse 88 94 95 Oximetry 11/26/21 11/26/21 11/26/21 17:19 17:21 17:23 Pulse Rate 86 92 H 91 H Pulse Rate [ Anterior Bilateral Throughout] Respiratory 29 H 18 25 H Rate Respiratory Rate [Anterior Bilateral Throughout] Blood Pressure 139/94 139/94 168/93 O2 Sat by Pulse 95 96 95 Oximetry 11/26/21 11/26/21 11/26/21 17:24 17:25 17:27 Pulse Rate 92 H 87 86 Pulse Rate [ Anterior Bilateral Throughout] Respiratory 21 21 25 H Rate Respiratory Rate [Anterior Bilateral Throughout] Blood Pressure 168/93 168/93 168/93 O2 Sat by Pulse 88 95 96 Oximetry 11/26/21 11/26/21 11/26/21 17:29 17:31 17:32 Pulse Rate 86 87 Pulse Rate [ 87 Anterior Bilateral Throughout] Respiratory 20 21 Rate Respiratory 18 Rate [Anterior Bilateral Throughout] Blood Pressure 168/93 168/93 O2 Sat by Pulse 96 97 Oximetry 11/26/21 11/26/21 11/26/21 17:33 17:35 17:37 Pulse Rate 87 85 85 Pulse Rate [ Anterior Bilateral Throughout] Respiratory 14 20 15 Rate Respiratory Rate [Anterior Bilateral Throughout] Blood Pressure 168/93 168/93 168/93 O2 Sat by Pulse 97 95 97 Oximetry 11/26/21 11/26/21 11/26/21 17:39 17:41 17:43 Pulse Rate 85 85 85 Pulse Rate [ Anterior Bilateral Throughout] Respiratory 16 13 28 H Rate Respiratory Rate [Anterior Bilateral Throughout] Blood Pressure 168/93 168/93 168/93 O2 Sat by Pulse 97 97 98 Oximetry 11/26/21 11/26/21 11/26/21 17:45 17:47 17:49 Pulse Rate 83 83 86 Pulse Rate [ Anterior Bilateral Throughout] Respiratory 27 H 22 28 H Rate Respiratory Rate [Anterior Bilateral Throughout] Blood Pressure 168/93 168/93 168/93 O2 Sat by Pulse 97 98 99 Oximetry 11/26/21 11/26/21 11/26/21 17:51 17:53 17:55 Pulse Rate 86 85 87 Pulse Rate [ Anterior Bilateral Throughout] Respiratory 26 H 24 26 H Rate Respiratory Rate [Anterior Bilateral Throughout] Blood Pressure 168/93 173/96 173/96 O2 Sat by Pulse 99 99 98 Oximetry 11/26/21 11/26/21 11/26/21 17:57 17:59 18:01 Pulse Rate 91 H 94 H 89 Pulse Rate [ Anterior Bilateral Throughout] Respiratory 19 20 20 Rate Respiratory Rate [Anterior Bilateral Throughout] Blood Pressure 173/96 173/96 173/96 O2 Sat by Pulse 98 96 97 Oximetry 11/26/21 11/26/21 11/26/21 18:03 18:05 18:07 Pulse Rate 90 98 H 94 H Pulse Rate [ Anterior Bilateral Throughout] Respiratory 20 28 H 28 H Rate Respiratory Rate [Anterior Bilateral Throughout] Blood Pressure 173/96 173/96 173/96 O2 Sat by Pulse 96 92 87 Oximetry 11/26/21 11/26/21 11/26/21 18:09 18:11 18:13 Pulse Rate 99 H 92 H 91 H Pulse Rate [ Anterior Bilateral Throughout] Respiratory 12 19 33 H Rate Respiratory Rate [Anterior Bilateral Throughout] Blood Pressure 173/96 173/96 173/96 O2 Sat by Pulse 89 92 83 L Oximetry 11/26/21 11/26/21 11/26/21 18:15 18:17 18:19 Pulse Rate 89 90 88 Pulse Rate [ Anterior Bilateral Throughout] Respiratory 22 24 20 Rate Respiratory Rate [Anterior Bilateral Throughout] Blood Pressure 173/96 173/96 173/96 O2 Sat by Pulse 89 89 95 Oximetry 11/26/21 11/26/21 11/26/21 18:21 18:23 18:25 Pulse Rate 92 H 92 H 89 Pulse Rate [ Anterior Bilateral Throughout] Respiratory 24 13 19 Rate Respiratory Rate [Anterior Bilateral Throughout] Blood Pressure 173/96 173/96 173/96 O2 Sat by Pulse 92 92 91 Oximetry 11/26/21 11/26/21 11/26/21 18:27 18:29 18:31 Pulse Rate 88 85 93 H Pulse Rate [ Anterior Bilateral Throughout] Respiratory 20 18 15 Rate Respiratory Rate [Anterior Bilateral Throughout] Blood Pressure 173/96 173/96 173/96 O2 Sat by Pulse 91 92 90 Oximetry 11/26/21 11/26/21 11/26/21 18:33 18:35 18:37 Pulse Rate 89 88 88 Pulse Rate [ Anterior Bilateral Throughout] Respiratory 30 H 49 H 45 H Rate Respiratory Rate [Anterior Bilateral Throughout] Blood Pressure 173/96 173/96 173/96 O2 Sat by Pulse 91 87 96 Oximetry 11/26/21 11/26/21 11/26/21 18:39 18:41 18:43 Pulse Rate 90 93 H 89 Pulse Rate [ Anterior Bilateral Throughout] Respiratory 50 H 18 20 Rate Respiratory Rate [Anterior Bilateral Throughout] Blood Pressure 173/96 173/96 173/96 O2 Sat by Pulse 100 100 100 Oximetry 11/26/21 11/26/21 11/26/21 18:45 18:47 18:49 Pulse Rate 88 88 90 Pulse Rate [ 91 H Anterior Bilateral Throughout] Respiratory 22 24 29 H Rate Respiratory 18 Rate [Anterior Bilateral Throughout] Blood Pressure 173/96 173/96 173/96 O2 Sat by Pulse 100 Oximetry 11/26/21 11/26/21 18:51 19:29 Pulse Rate 90 Pulse Rate [ Anterior Bilateral Throughout] Respiratory 51 H 20 Rate Respiratory Rate [Anterior Bilateral Throughout] Blood Pressure 173/96 O2 Sat by Pulse 100 Oximetry - Reevaluation(s) Reevaluation #1: 11/26/21 20:07 Remained saturation 92 to 95% after ED treatment for COPD including bronchodilators, steroids, and magnesium ED Medical Decision Making - EKG Data -: EKG Interpreted by Me EKG shows normal: sinus rhythm, ST-T waves (No STEMI) Rate: normal (84) - EKG Data When compared to previous EKG there are: no significant change - Radiology Data Radiology results: report reviewed CHEST 1 VIEW 11/26/2021 4:29 PM INDICATION / CLINICAL INFORMATION: sob, wheeze. COMPARISON: 11/19/21 FINDINGS: SUPPORT DEVICES: Stable pacemaker. HEART / MEDIASTINUM: Cardiomegaly, similar prior exam. LUNGS / PLEURA: There is bilateral vascular congestion with trace pleural effusions. No focal airspace disease. No pneumothorax. ADDITIONAL FINDINGS: No significant additional findings. IMPRESSION: 1. Cardiomegaly with pulmonary edema. Trace bilateral pleural effusions. - Medical Decision Making 51-year-old female with multiple chronic medical conditions presents to the hospital planing of shortness of breath with audible wheezing on examination. Patient had improvement in symptoms with bronchodilators, Solu-Medrol, and magnesium. Patient x-ray suggestive of CHF and therefore she received 1 dose of IV Lasix with supplemental potassium. Patient refused blood draw because she was tired of being stuck and therefore I am unable to verify her potassium level or other labs at this time. Patient voices understanding. Since symptoms improved with bronchodilators they would be continued at home with bronchodilators and steroids for COPD exacerbation. Patient encouraged to continue her medication and return if symptoms worsen. Critical Care Time: No Critical care attestation.: If time is entered above; I have spent that time in minutes in the direct care of this critically ill patient, excluding procedure time. ED Disposition Clinical Impression: COPD exacerbation, CHF exacerbation, MEGHAN (obstructive sleep apnea), On home O2, Medication refill Disposition: HOME / SELF CARE / HOMELESS Is pt being admited?: No Does the pt Need Aspirin: No Condition: Stable Instructions: Chronic Obstructive Pulmonary Disease (ED), Chronic Obstructive Pulmonary Disease, Heart Failure Exacerbation Additional Instructions: Your symptoms today are likely caused by COPD exacerbation however, his chest x- ray also shows sounds of congestive heart failure. Unfortunately you declined laboratory evaluation today for further assessment of her electrolyte status and work-up. Continue to take your medications as prescribed. Follow-up with your doctor or doctor/clinic provided. Return if symptoms worsen as indicated by your discharge instructions. Prescriptions: predniSONE [Deltasone] 40 mg PO QDAY 5 Days tab Nebulizer and Compressor [Easy Air Compressor Nebulizer] 1 each MC PRN #1 each Nebulizer Accessories [Mouthpiece] 1 each MC PRN #1 each Albuterol Sulfate [Proventil Hfa] 6.7 gm IH Q4HR #1 Referrals: PRIMARY CAREMD [Primary Care Provider] - 3-5 Days WESLEY LOPEZ MD [Staff Physician] - 3-5 Days (Lung specialist) Time of Disposition: 20:16
--- NOTE | 2021-11-27 20:30 | Electrocardiograph Report ---
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
== END 2021-11-26 20:40 | disposition home or self-care (01) ==
LOC: ED 16:06
DX: J44.1 Chronic obstructive pulmonary disease with (acute) exacerbation (principal); I11.0 Hypertensive heart disease with heart failure; I50.9 Heart failure, unspecified; G47.33 Obstructive sleep apnea (adult) (pediatric); Z76.0 Encounter for issue of repeat prescription; Z79.899 Other long term (current) drug therapy
CPT/HCPCS: 71045; 93005; 94640; 96365; 96375; 99284; J1940; J2930; J3475; 94644; 99283